=== PATIENT | female | born 1940 | race Caucasian/White ===

== ENCOUNTER 2017-06-14 12:25 | Observation (INO) ==
[2017-06-14 13:03] LABS: Bilirubin,Urine Negative (Negative); Blood,Urine Trace (Negative); Clarity,Urine Clear (Clear); Color,Urine Yellow (Yellow); Glucose,Urine (UA) 250 mg/dL (Normal); Ketones,Urine Trace mg/dL (Negative); Leukocyte Esterase,Urine Negative (Negative); Nitrite,Urine Negative (Negative); Protein,Urine 100 mg/dL (Neg-Trace); Specific Gravity,Urine 1.015 (1.010-1.025); Urobilinogen,Urine Normal (Normal)
[2017-06-14 13:05] LABS: Bacteria,Urine None Seen per hpf (None-Few); Hyaline Casts,Urine None Seen per lpf (None-Few); RBC,Urine 0-3 per hpf (0-3); Squamous Epithelial Cell,Urine Many per lpf (None-Few); WBC,Urine 0-3 per hpf (0-3)
--- NOTE | 2017-06-14 13:27 | Emergency Department Note ---
Disposition Clinical Impression: Generalized weakness, Inability to ambulate due to right hip Contusion of right hip Qualifiers: Encounter type: initial encounter Qualified Code(s): S70.01XA - Contusion of right hip, initial encounter Disposition: Admitted As Inpatient Condition: Fair Referrals: Kevin Haines MD [Primary Care Provider] - Forms: ED Satisfaction Letter Time of Disposition: 16:52 General Adult HPI - General Chief complaint: ED Weakness Stated complaint: diaphoretic/incoherent/fall Time Seen by Provider: 06/14/17 12:38 Source: patient, family (son), EMS Mode of arrival: EMS Limitations: altered mental status Nursing Notes Reviewed: Yes Vital Signs Reviewed: Yes - History of Present Illness HPI Narrative: 77-year-old female history of bipolar, Parkinson, [id number] diabetes mellitus, CAD s/p CABG presents to the ED via EMS for diaphoresis and weakness. She is a poor historian. Her son is at bedside to assist with history. States that patient called the son but did not say anything. Patient lives in a independent living for the last 3 years. The sun arrived to her apartment with her on her knees diaphoretic at her bedside. Patient denies folly but cannot recall the entire event. She states she attempted to get up and then felt tired and weak in the legs and decided to sit down. She currently denies any chest pain, shortness of breath, recent illness, nausea, vomiting, abdominal pain, extremity pain or neck pain. Reevaluation mission this alert and oriented to person and place. No obvious facial deformity. She has a bruise to the right hip. She has some urinary incontinence. Her initial blood sugar reportedly 290. Recent right arm injury and fracture with repair and pins by Dr. Wilkes. Son is concerned that she may not have been taking care of herself over the past several weeks. She typically requires a friend or family member to come over to sister on eating and drinking. She has a abnormal sleep schedule. Will get a CT of the head and neck, chest x-ray, EKG, basic labs, troponin, serum ketone. Also get urinalysis preferably a straight catheterization due to her weakness. X-ray of the right hip ordered as well. Patient appears in no acute distress. 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 Pain Scale: 0 - Related Data Home Medications Medication Instructions Recorded Confirmed Aspirin Enteric Coated [Aspirin EC] 81 mg PO QAM 07/20/15 06/14/17 Carbidopa/Levodopa 25/100 [Sinemet] 1 each PO TID 07/20/15 06/14/17 Carbidopa/Levodopa ER 50/200 1 each PO HS 07/20/15 06/14/17 [Sinemet ER 50-200 Tab] Carvedilol [Coreg] 12.5 mg PO BID 07/20/15 06/14/17 Ezetimibe [Zetia] 10 mg PO DAILY 07/20/15 06/14/17 Lisinopril [Zestril] 20 mg PO DAILY 07/20/15 06/14/17 Omeprazole [PriLOSEC] 40 mg PO BID 07/20/15 06/14/17 Pramipexole [Mirapex] 0.5 mg PO BID 07/20/15 06/14/17 Amlodipine Besylate 2.5 mg PO DAILY 04/12/17 06/14/17 Atorvastatin [Lipitor] 40 mg PO HS 04/12/17 06/14/17 Duloxetine HCl [Cymbalta] 60 mg PO DAILY 04/12/17 06/14/17 Gabapentin [Neurontin] 300 mg PO HS 04/12/17 06/14/17 GlipiZIDE XL (24 HR) [Glucotrol XL] 2.5 mg PO 0800 04/12/17 06/14/17 Metformin HCl [Glucophage] 1,000 mg PO BID 04/12/17 06/14/17 Mirabegron [Myrbetriq] 50 mg PO DAILY 04/12/17 06/14/17 Oxybutynin Chloride [Ditropan Xl] 5 mg PO HS 04/12/17 06/14/17 Rivaroxaban [Xarelto] 20 mg PO HS 04/12/17 06/14/17 Sertraline [Zoloft] 25 mg PO DAILY 04/12/17 06/14/17 SitaGLIPtin [Januvia] 100 mg PO DAILY 04/12/17 06/14/17 Allergies Allergy/AdvReac Type Severity Reaction Status Date / Time Gatifloxacin [From Tequin] Allergy Hives Verified 06/14/17 12:29 Review of Systems: As Per HPI Limitations: ROS unobtainable due to patients medical condition Past Medical History - Past Medical History Attestation: Yes The following information was validated with the patient. Source: obtained from family, nursing notes reviewed Medical history: Reports: diabetes, hyperlipidemia, hypertension, myocardial infarction Surgical history: Reports: orthopedic, other Psychiatric history: Reports: anxiety, bipolar - Social History Smoking Status: Never smoker Smokeless Tobacco Status: No Alcohol use: Reports: none Drug use: Reports: none Physical Exam - General Limitations: altered mental status General appearance: alert, in no apparent distress - Head Head exam: atraumatic, normocephalic - Eye Eye exam: Present: normal appearance - ENT ENT exam: normal exam - Neck Neck exam: Present: normal inspection, full ROM. Absent: tenderness - Chest Chest inspection: Present: normal inspection, other (midline scar consistent with CABG). Absent: symmetric chest wall rise, tenderness - Respiratory Respiratory exam: Present: normal lung sounds bilaterally. Absent: respiratory distress, wheezes - Cardiovascular Cardiovascular exam: Present: regular rate, normal rhythm, normal heart sounds - Abdominal Exam Abdominal exam: Present: soft (OBESE), Non-Tender, normal bowel sounds. Absent : tenderness, distention, guarding, rebound, rigidity - Extremities Exam Extremities exam: Present: other (right arm held in adduction and elbow flexed as if in sling, ecchymosis to right lateral hip) - Expanded Lower Extremity Exam Hip/Pelvis exam: Present: ecchymosis, pelvis stable. Absent: deformity, external rotation, internal rotation, shortening Upper leg exam: Present: normal inspection, full ROM Knee exam: Present: normal inspection, full ROM Lower leg exam: Present: normal inspection, full ROM Ankle exam: Present: normal inspection, full ROM Foot/toe exam: Present: normal inspection, full ROM Neurovascular/Tendon exam: Present: normal capillary refill - Neurological Exam Neurological exam: Present: alert - Expanded Neurological Exam Patient oriented to: Present: person, place Motor strength - LUE: 4/5 Motor strength - RUE: 4/5 Motor strength - LLE: 4/5 Motor strength - RLE: 4/5 Course - Reevaluation(s) Reevaluation #1: 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 She is established with [facility]. Was able to increase assistance for 8 hours a day. Review for labs she has a small anionic gap with a mild elevation of searing ketones. Urinalysis does not appear consistent with infection. CT of the head does not show intracranial abnormality. EKG does not show any acute ischemic changes. Labs are otherwise unremarkable. X-ray of her right hip shows no obvious fracture or abnormality. Attempted to ambulate the patient was unable to stand upon her own weight. She required significant assistance just withstanding. Some states she is normally able to ambulate with a walker. Due to her recent right arm injury and surgery she has not been moved around as well. She was scheduled with outpatient physical therapy but she cannot drive has not been attending. She will likely need admission due to her weakness and inability to ambulate. Time: 16:23 Reevaluation #2: MRI ordered of the right hip to evaluate for occult fracture of the right hip. There are in agreement with plan for admission and possible rehab placement. Time: 17:00 - Consultations Consultation #1: Spoke with on-call hospitalist may Agarwal to admit for generalized weakness and inability to walk due to suspected right hip injury/ecchymosis. No further orders at this time Time: 16:36 Vital Signs Temperature 97.7 F 06/14/17 12:37 Pulse Rate 99 06/14/17 12:37 Respiratory Rate 18 06/14/17 12:37 Blood Pressure 142/82 06/14/17 12:37 O2 Sat by Pulse Oximetry 95 06/14/17 12:37 Temperature 97.7 F 06/14/17 12:37 Pulse Rate 94 06/14/17 14:37 Respiratory Rate 16 06/14/17 14:37 Blood Pressure 142/82 06/14/17 14:37 O2 Sat by Pulse Oximetry 99 06/14/17 14:37 Oxygen Delivery Oxygen Delivery Room Air Medical Decision Making - Medical Records Medical records reviewed: Yes I reviewed the patient's medical records. - Lab Data Lab results reviewed: Yes I reviewed the patient's lab results. Result diagrams: 06/14/17 13:07 06/14/17 13:07 Lab Results 06/14/17 06/14/17 06/14/17 Range/Units 12:32 12:54 13:07 WBC 8.0 (4.3-11.1) K/mcL RBC 4.77 (3.82-4.97) M/mcL Hgb 11.2 L (11.5-15.4) g/dL Hct 37.4 (35.3-44.9) % MCV 78.4 L (83.0-100.0) fL MCH 23.5 L (28.0-33.3) pg MCHC 29.9 L (31.6-35.5) g/dL RDW 16.1 H (11.5-14.5) % Plt Count 205 (140-400) K/mcL MPV 11.6 (9.4-12.4) fL Immature Gran % 0.3 (0-4) % Seg Neutrophils % 86.0 % Lymphocytes % 8.8 % Monocytes % 4.0 % Eosinophils % 0.4 % Basophils % 0.5 % Neutrophils # 6.9 (1.6-8.9) K/mcL Lymphocytes # 0.7 (0.6-4.6) K/mcL Monocytes # 0.3 (0.0-1.3) K/mcL Eosinophils # 0.0 (0.0-0.6) K/mcL Basophils # 0.0 (0.0-0.2) K/mcL Sodium (136-145) mEq/L Potassium (3.5-4.5) mEq/L Chloride (98-109) mEq/L Carbon Dioxide (19-29) mEq/L BUN (7-20) mg/dL Creatinine (0.57-1.11) mg/dL Est GFR ( Amer) (> 60) Est GFR (Non-Af Amer) (> 60) BUN/Creatinine Ratio (6-26) Glucose (70-99) mg/dL POC Glucose 296 H (58-89) Calculated Osmolality (280-300) Calcium (8.6-10.8) mg/dL Total Bilirubin (0.2-1.2) mg/dL AST (5-34) Units/L ALT (0-55) Units/L Alkaline Phosphatase (38-126) Units/L Troponin I (0-0.03) ng/mL Serum Total Protein (6.0-8.3) g/dL Albumin (3.5-5.0) g/dL Globulin (2.4-3.5) g/dL Albumin/Globulin Ratio (1.1-2.2) Beta-Hydroxybutyric Acd (0.02-0.27) mmol/L Urine Color Yellow (Yellow) Urine Clarity Clear (Clear) Urine pH 7.0 (5.0-8.0) pH Units Ur Specific [place] 1.015 (1.010-1.025) Urine Protein 100 H (Neg-Trace) mg/dL Urine Glucose (UA) 250 H (Normal) mg/dL Urine Ketones Trace H (Negative) mg/dL Urine Blood Trace H (Negative) Urine Nitrite Negative (Negative) Urine Bilirubin Negative (Negative) Urine Urobilinogen Normal (Normal) mg/dL Ur Leukocyte Esterase Negative (Negative) Urine Microscopic RBC 0-3 (0-3) per hpf Urine Microscopic WBC 0-3 (0-3) per hpf Ur Squamous Epith Cells Many H (None-Few) per lpf Urine Bacteria None Seen (None-Few) per hpf Hyaline Casts None Seen (None-Few) per lpf Ur Culture Indicated? NO (NO) 06/14/17 06/14/17 06/14/17 Range/Units 13:07 13:07 13:07 WBC (4.3-11.1) K/mcL RBC (3.82-4.97) M/mcL Hgb (11.5-15.4) g/dL Hct (35.3-44.9) % MCV (83.0-100.0) fL MCH (28.0-33.3) pg MCHC (31.6-35.5) g/dL RDW (11.5-14.5) % Plt Count (140-400) K/mcL MPV (9.4-12.4) fL Immature Gran % (0-4) % Seg Neutrophils % % Lymphocytes % % Monocytes % % Eosinophils % % Basophils % % Neutrophils # (1.6-8.9) K/mcL Lymphocytes # (0.6-4.6) K/mcL Monocytes # (0.0-1.3) K/mcL Eosinophils # (0.0-0.6) K/mcL Basophils # (0.0-0.2) K/mcL Sodium 141 (136-145) mEq/L Potassium 3.5 (3.5-4.5) mEq/L Chloride 107 (98-109) mEq/L Carbon Dioxide 20 (19-29) mEq/L BUN 12 (7-20) mg/dL Creatinine 0.95 (0.57-1.11) mg/dL Est GFR ( Amer) > 60 (> 60) Est GFR (Non-Af Amer) 57 L (> 60) BUN/Creatinine Ratio 13 (6-26) Glucose 296 H (70-99) mg/dL POC Glucose (58-89) Calculated Osmolality 303 H (280-300) Calcium 9.4 (8.6-10.8) mg/dL Total Bilirubin 0.6 (0.2-1.2) mg/dL AST 11 (5-34) Units/L ALT 8 (0-55) Units/L Alkaline Phosphatase 76 (38-126) Units/L Troponin I 0.03 (0-0.03) ng/mL Serum Total Protein 6.9 (6.0-8.3) g/dL Albumin 3.7 (3.5-5.0) g/dL Globulin 3.2 (2.4-3.5) g/dL Albumin/Globulin Ratio 1.2 (1.1-2.2) Beta-Hydroxybutyric Acd 0.49 H (0.02-0.27) mmol/L Urine Color (Yellow) Urine Clarity (Clear) Urine pH (5.0-8.0) pH Units Ur Specific [place] (1.010-1.025) Urine Protein (Neg-Trace) mg/dL Urine Glucose (UA) (Normal) mg/dL Urine Ketones (Negative) mg/dL Urine Blood (Negative) Urine Nitrite (Negative) Urine Bilirubin (Negative) Urine Urobilinogen (Normal) mg/dL Ur Leukocyte Esterase (Negative) Urine Microscopic RBC (0-3) per hpf Urine Microscopic WBC (0-3) per hpf Ur Squamous Epith Cells (None-Few) per lpf Urine Bacteria (None-Few) per hpf Hyaline Casts (None-Few) per lpf Ur Culture Indicated? (NO) - Radiology Data Radiology results reviewed: Yes I reviewed the patient's radiology results. Cervical Spine CT 06/14/17 12:38 IMPRESSION: No acute abnormality of the cervical spine. D/ / Blair Dang MD / Blair Dang MD Interpreting Provider: Blair Dang MD Chest X-Ray 06/14/17 12:38 IMPRESSION: No acute process. D/ / Michel Pepe MD / Michel Pepe MD Interpreting Provider: Michel Pepe MD Head CT 06/14/17 12:38 IMPRESSION: No acute intracranial abnormality. Old, nonacute ischemic changes. D/ / Emmanuelle Villegas MD / Emmanuelle Villegas MD Interpreting Provider: Emmanuelle Villegas MD Hip X-Ray 06/14/17 13:27 IMPRESSION: 1. No acute osseous abnormality involving the right hip. D/ / Stephen Buckley MD / Stephen Buckley MD Interpreting Provider: Stephen Buckley MD - EKG Data EKG #1 EKG attestation: Yes I reviewed and interpreted this EKG. EKG results narrative: EKG performed 1244 normal sinus rhythm 96 bpm left axis deviation, poor R-R wave progression, LVH voltage criteria, intervals are within normal limits. Abnormal EKG. Consistent findings compared to old EKG 04/09/17. No acute ischemic changes.
[2017-06-14 13:36] LABS: Basophils % 0.5 %; Eosinophils % 0.4 %; Hematocrit 37.4 % (35.3-44.9); Hemoglobin 11.2 g/dL (11.5-15.4); Immature Granulocytes % 0.3 % (0-4); Lymphocytes # 0.7 K/mcL (0.6-4.6); Lymphocytes % 8.8 %; Mean Corpuscular HGB Conc 29.9 g/dL (31.6-35.5); Mean Corpuscular Hemoglobin 23.5 pg (28.0-33.3); Mean Corpuscular Volume 78.4 fL (83.0-100.0); Mean Platelet Volume 11.6 fL (9.4-12.4); Monocytes # 0.3 K/mcL (0.0-1.3); Neutrophils # 6.9 K/mcL (1.6-8.9); Platelet Count 205 K/mcL (140-400); Red Blood Count 4.77 M/mcL (3.82-4.97); Red Cell Distribution Width 16.1 % (11.5-14.5)
[2017-06-14 13:51] LABS: Alanine Aminotransferase 8 Units/L (0-55); Albumin 3.7 g/dL (3.5-5.0); Albumin/Globulin Ratio 1.2 (1.1-2.2); Alkaline Phosphatase 76 Units/L (38-126); Aspartate Amino Transferase 11 Units/L (5-34); BUN/Creatinine Ratio 13 (6-26); Bilirubin,Total 0.6 mg/dL (0.2-1.2); Blood Urea Nitrogen 12 mg/dL (7-20); Calcium 9.4 mg/dL (8.6-10.8); Carbon Dioxide 20 mEq/L (19-29); Chloride 107 mEq/L (98-109); Globulin 3.2 g/dL (2.4-3.5); Glucose 296 mg/dL (70-99); Osmolality,Calculated 303 (280-300); Potassium 3.5 mEq/L (3.5-4.5); Sodium 141 mEq/L (136-145); Total Protein 6.9 g/dL (6.0-8.3); eGFR For African Americans > 60 (> 60); eGFR For Non-African Americans 57 (> 60)
--- NOTE | 2017-06-14 16:22 | Electrocardiograph Report ---
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
--- NOTE | 2017-06-14 18:22 | Internal Med History&Physical ---
Date of Encounter: 06/14/17 Time of Encounter: 18:17 Assessment and Plan (1) Diabetes mellitus Current visit: No Status: Chronic (2) Parkinson disease Current visit: No Status: Chronic (3) Generalized weakness Current visit: Yes Status: Acute (4) Inability to ambulate due to right hip Current visit: Yes Status: Acute Internal Medicine - H&P: HPI Chief complaint: generalized weakness and fall Admitted From: Home Plans for Post Hospital Care: Transfer Inp Rehab Fac History of present illness: Ms. Bennett is a 77 year old female with history of bipolar, Parkinson, non- insulin-dependent diabetes mellitus, CAD s/p CABG presents to the ED via EMS for diaphoresis and weakness. She is a poor historian. Her son is at bedside to assist with history. Patient lives in a independent living for the last 3 years. The sun arrived to her apartment with her on her knees diaphoretic at her bedside. Patient denies falling but cannot recall the entire event. She states she attempted to get up and then felt tired and weak in the legs and decided to sit down. She currently denies any chest pain, shortness of breath, recent illness, nausea, vomiting, abdominal pain, extremity pain or neck pain. No obvious facial deformity. She has a bruise to the right hip. She has some urinary incontinence. Her initial blood sugar reportedly 290. Recent right arm injury and fracture with repair and pins by Dr. Wilkes. Son is concerned that she may not have been taking care of herself over the past several weeks. workup at ED showed CT of the head and neck which was essentially negative, no fracture of the hip. however patient appeared too weak to go home and was not able to stand up on her own. given that she had recent surgery and she is a fall risk, she will need rehab placement. Past Med Surg Social Fam HX - Past Medical History Medical history: diabetes, hyperlipidemia, hypertension, myocardial infarction Psychiatric history: anxiety, bipolar - Past Surgical History Surgical History: orthopedic, other - Social History Smoking Status: Never smoker Smokeless Tobacco Status: No Alcohol use: none Drug use: none - Family History Mother Living Status: Hx Family Cardiac Disorders: Yes Father Living Status: Hx Family Neurologic Disorders: Yes (Brain aneurysm) Internal Medicine - H&P: Meds Aspirin Enteric Coated [Aspirin EC] 81 mg PO QAM 07/20/15 [History] Carbidopa/Levodopa 25/100 [Sinemet] 1 each PO TID 07/20/15 [History] Carbidopa/Levodopa ER 50/200 [Sinemet ER 50-200 Tab] 1 each PO HS 07/20/15 [ History] Carvedilol [Coreg] 12.5 mg PO BID 07/20/15 [History] Ezetimibe [Zetia] 10 mg PO DAILY 07/20/15 [History] Lisinopril [Zestril] 20 mg PO DAILY 07/20/15 [History] Omeprazole [PriLOSEC] 40 mg PO BID 07/20/15 [History] Pramipexole [Mirapex] 0.5 mg PO BID 07/20/15 [History] Amlodipine Besylate 2.5 mg PO DAILY 04/12/17 [History] Atorvastatin [Lipitor] 40 mg PO HS 04/12/17 [History] Duloxetine HCl [Cymbalta] 60 mg PO DAILY 04/12/17 [History] Gabapentin [Neurontin] 300 mg PO HS 04/12/17 [History] GlipiZIDE XL (24 HR) [Glucotrol XL] 2.5 mg PO 0800 04/12/17 [History] Metformin HCl [Glucophage] 1,000 mg PO BID 04/12/17 [History] Mirabegron [Myrbetriq] 50 mg PO DAILY 04/12/17 [History] Oxybutynin Chloride [Ditropan Xl] 5 mg PO HS 04/12/17 [History] Rivaroxaban [Xarelto] 20 mg PO HS 04/12/17 [History] Sertraline [Zoloft] 25 mg PO DAILY 04/12/17 [History] SitaGLIPtin [Januvia] 100 mg PO DAILY 04/12/17 [History] Allergies Gatifloxacin [From Tequin] Allergy (Verified 06/14/17 12:29) Hives All Systems PM: A 10-system review of systems was performed and is negative for pertinent findings except as documented above in the HPI. - Constitutional Constitutional: as per HPI - EENT Eyes: as per HPI Ears: as per HPI Nose, mouth and throat: as per HPI - Breasts Breasts: as per HPI - Cardiovascular Cardiovascular ROS IM: as per HPI - Respiratory Respiratory: as per HPI - Gastrointestinal Gastrointestinal: as per HPI - Genitourinary Genitourinary: as per HPI Menstruation: as per HPI - Musculoskeletal Musculoskeletal ROS IM: as per HPI - Integumentary Integumentary IM: as per HPI - Constitutional Vitals: Temp Pulse Resp BP Pulse Ox 97.7 F 94 16 142/82 99 06/14/17 12:37 06/14/17 14:37 06/14/17 14:37 06/14/17 14:37 06/14/17 14:37 General appearance: Present: A&O X 3, no acute distress Exam: neck- supple chest- b/l clear, no added sounds CVS-s1 and s2, nomr/g abd-soft, non tender, bs are present ext- no edema, tender right hip, dereased ROM neuro- no focal defecits. Internal Med - H&P Results - Labs CBC & Chem 7: 06/14/17 13:07 06/14/17 13:07
[2017-06-14] MEDS ORDERED: Naloxone 0.4 MG/ML INJ IVP PRN (20:06)
[2017-06-14] MEDS ORDERED: D5% in Water 1,000 ML IVC PRN (20:09)
[2017-06-14] MEDS ORDERED: *HR* Dextrose 50 % in Water (Syg) 50 ML SYRINGE IVP PRN (20:09)
[2017-06-14] MEDS ORDERED: Dextrose Gel 15 GM PO PRN ×2 (20:09)
--- NOTE | 2017-06-14 20:27 | Internal Med History&Physical ---
<Hoda Turner M - Last Filed: 06/14/17 23:10> Date of Encounter: 06/14/17 Time of Encounter: 20:23 Assessment and Plan (1) Inability to ambulate due to right hip Current visit: Yes Status: Acute Patient denies falling at home but is reporting pain in right hip, and unable to ambulate because of it. right hip xray with no acute fracture. MRI of right hip shows evidence of soft tissue injuries, with no hip fracture identified. There is a suspected nondisplaced fracture of the inferior aspect of the sacrum. Pain control with tylenol and norco. PT/OT consults. Xray of sacrum and coccyx ordered. (2) Elevated troponin Current visit: Yes Status: Acute Second troponin came back elevated to 0.08, up from initial troponin of 0.03. Patient continues to deny chest pain or shortness of breath. Stat EKG ordered which did not demonstrate any changes from earlier or previous EKGs. History of CAD s/p CABG. Will continue to trend troponins. Continuous manager cardiac cath. Echocardiogram. (3) Type 2 diabetes mellitus Current visit: Yes Status: Acute Controlled as evidenced by A1c of 7.0% on 04/09/17. Hold metformin, januvia, and glipizide Diabetic diet check blood sugars ACHS sliding scale correction dose ACHS hypoglycemic protocol. Qualifiers: Diabetes mellitus complication status: without complication Diabetes mellitus skilled nursing insulin use: without skilled nursing use Qualified Code(s): E11.9 - Type 2 diabetes mellitus without complications (4) Generalized weakness Current visit: Yes Status: Acute Patient presents with generalized weakness and diaphoresis. EKG without changes. Troponin negative. CT of head negative for acute abnormality. continuous manager cardiac cath serial troponins PT/OT consult SWK consult. (5) Coronary artery disease Current visit: No Status: Chronic Patient with history of CAD s/p CABG. She denies any chest pain or shortness of breath. Continue home mohamud of aspirin, statin and beta nicholas. Qualifiers: Coronary Disease-Associated Artery/Lesion type: [place] artery [place] vs. transplanted heart: [place] heart Associated angina: angina presence unspecified Qualified Code(s): I25.10 - Atherosclerotic heart disease of [place] coronary artery without angina pectoris (6) DVT prophylaxis Current visit: Yes Status: Acute anti-embolic stockings Patient on Xarelto for history of DVT, additional pharmacologic prophylaxis not warranted. Internal Medicine - H&P: HPI Chief complaint: weakness Admitted From: Emergency Dept History of present illness: Ms. Bennett is a 77 year old female with coronary artery disease status post CABG , hypertension, hyperlipidemia, type 2 diabetes, parkinsons, DVT on xarelto, presents to the ED today with complaints of weakness. Patient reports she felt weak and sweaty and lowered herself to the ground, and was unable to get back up. She denies lightheadedness, loss of consciousness, or hitting her head. She does report some pain in her right hip and right arm. She had recent orthopedic surgery on her right arm for which she was supposed to be doing physical therapy, but has not. She denies any chest pain, palpitations, shortness of breath, fevers, chills, nausea, vomiting, abdominal pain. Evaluation in the ER included eKG which showed no changes from previous ekg. Head CT showed no acute intracranial abnormality. Troponin was negative at 0.03. She was hyperglycemic with glucose of 296. UA was negative for infection. Imaging was negative for any acute fracture, but patient was not able to ambulate. MRI of right hip was ordered and is pending. On exam, patient alert and oriented, in no acute distress. Heart had regular rate and rhythm, lungs clear to auscultation bilaterally. Patient had mild tremor. Her right arm was flexed and she held it closely to her abdomen, and reported pain with manipulation. She reports it has been like this since her surgery. She had no peripheral edema. No pain with passive range of motion of her legs. Past Med Surg Social Fam HX - Past Medical History Medical history: diabetes, hyperlipidemia, hypertension, myocardial infarction Psychiatric history: anxiety, bipolar - Past Surgical History Surgical History: orthopedic, other - Social History Smoking Status: Never smoker Smokeless Tobacco Status: No Alcohol use: none Drug use: none - Family History Mother Living Status: Hx Family Cardiac Disorders: Yes Father Living Status: Hx Family Neurologic Disorders: Yes (Brain aneurysm) Internal Medicine - H&P: Meds Aspirin Enteric Coated [Aspirin EC] 81 mg PO QAM 07/20/15 [History] Carbidopa/Levodopa 25/100 [Sinemet] 1 each PO TID 07/20/15 [History] Carbidopa/Levodopa ER 50/200 [Sinemet ER 50-200 Tab] 1 each PO HS 07/20/15 [ History] Carvedilol [Coreg] 12.5 mg PO BID 07/20/15 [History] Ezetimibe [Zetia] 10 mg PO DAILY 07/20/15 [History] Lisinopril [Zestril] 20 mg PO DAILY 07/20/15 [History] Omeprazole [PriLOSEC] 40 mg PO BID 07/20/15 [History] Pramipexole [Mirapex] 0.5 mg PO BID 07/20/15 [History] Amlodipine Besylate 2.5 mg PO DAILY 04/12/17 [History] Atorvastatin [Lipitor] 40 mg PO HS 04/12/17 [History] Duloxetine HCl [Cymbalta] 60 mg PO DAILY 04/12/17 [History] Gabapentin [Neurontin] 300 mg PO HS 04/12/17 [History] GlipiZIDE XL (24 HR) [Glucotrol XL] 2.5 mg PO 0800 04/12/17 [History] Metformin HCl [Glucophage] 1,000 mg PO BID 04/12/17 [History] Mirabegron [Myrbetriq] 50 mg PO DAILY 04/12/17 [History] Oxybutynin Chloride [Ditropan Xl] 5 mg PO HS 04/12/17 [History] Rivaroxaban [Xarelto] 20 mg PO HS 04/12/17 [History] Sertraline [Zoloft] 25 mg PO DAILY 04/12/17 [History] SitaGLIPtin [Januvia] 100 mg PO DAILY 04/12/17 [History] Allergies Gatifloxacin [From Tequin] Allergy (Verified 06/14/17 12:29) Hives All Systems PM: A 10-system review of systems was performed and is negative for pertinent findings except as documented above in the HPI. - Constitutional Constitutional: weakness, no chills, no fever(s), no night sweats - EENT Eyes: no change in vision, no discharge, no pain, no photophobia Ears: no ear discharge, no ear pain, no tinnitus Nose, mouth and throat: no dysphagia, no nasal discharge, no neck pain, no sore throat - Cardiovascular Cardiovascular ROS IM: diaphoresis, no chest pain, no dyspnea, no lightheadedness, no palpitations, no syncope - Respiratory Respiratory: no cough, no dyspnea, no wheezing, no excessive phlegm production - Gastrointestinal Gastrointestinal: no abdominal pain, no diarrhea, no hematemesis, no hematochezia, no melena, no nausea, no vomiting - Genitourinary Genitourinary: no change in urinary stream, no dysuria, no flank pain, no hematuria - Musculoskeletal Musculoskeletal ROS IM: no numbness, no tingling Additional comments: right hip pain, right arm pain - Integumentary Integumentary IM: no rash, no unusual bruising - Neurological Neurological ROS: no confusion, no convulsions, no focal weakness, no numbness, no tingling, no tremor(s) - Hematologic/Lymphatic Hematologic/Lymphatic: no easy bruising - Constitutional Vitals: Temp Pulse Resp BP Pulse Ox 98.6 F 93 15 145/85 95 06/14/17 19:39 06/14/17 19:39 06/14/17 19:39 06/14/17 19:39 06/14/17 19:39 General appearance: Present: A&O X 3, pleasant, no acute distress - Head Head exam: Present: atraumatic, normocephalic - Eye Eye exam: Present: PERRL, conjuntiva pink, sclera anicteric Pupils: Present: PERRL - Neck Neck exam general surgery: Present: supple, trachea midline. Absent: lymphadenopathy - Respiratory Respiratory exam: Present: CTAB. Absent: accessory muscle use, rales, rhonchi, wheezes - Cardiovascular Cardiovascular exam: Present: RRR, +S1, +S2. Absent: diastolic murmur, gallop, rubs, systolic murmur - GI/Abdominal GI/Abdominal exam: Present: normal bowel sounds, soft, no peritoneal signs. Absent: distended, tenderness - Extremities Exam Extremities exam: Present: warm, radial pulses palpable and symmetrical. Absent : calf tenderness, cyanotic, pedal edema - Neurological Exam Neurological exam: Present: CN II-XII intact, oriented X3, no focal deficits. Absent: facial droop, speech deficit Additional comments: protective of right arm, pain with passive range of motion of right wrist and elbow. - Skin Skin exam: Present: dry, intact Internal Med - H&P Results - Labs CBC & Chem 7: 06/14/17 13:07 06/14/17 13:07 Labs: All Lab Results (24 Hours) 06/14/17 06/14/17 06/14/17 Range/Units 12:32 12:54 13:07 WBC 8.0 (4.3-11.1) K/mcL RBC 4.77 (3.82-4.97) M/mcL Hgb 11.2 L (11.5-15.4) g/dL Hct 37.4 (35.3-44.9) % MCV 78.4 L (83.0-100.0) fL MCH 23.5 L (28.0-33.3) pg MCHC 29.9 L (31.6-35.5) g/dL RDW 16.1 H (11.5-14.5) % Plt Count 205 (140-400) K/mcL MPV 11.6 (9.4-12.4) fL Immature Gran % 0.3 (0-4) % Seg Neutrophils % 86.0 % Lymphocytes % 8.8 % Monocytes % 4.0 % Eosinophils % 0.4 % Basophils % 0.5 % Neutrophils # 6.9 (1.6-8.9) K/mcL Lymphocytes # 0.7 (0.6-4.6) K/mcL Monocytes # 0.3 (0.0-1.3) K/mcL Eosinophils # 0.0 (0.0-0.6) K/mcL Basophils # 0.0 (0.0-0.2) K/mcL Sodium (136-145) mEq/L Potassium (3.5-4.5) mEq/L Chloride (98-109) mEq/L Carbon Dioxide (19-29) mEq/L BUN (7-20) mg/dL Creatinine (0.57-1.11) mg/dL Est GFR ( Amer) (> 60) Est GFR (Non-Af Amer) (> 60) BUN/Creatinine Ratio (6-26) Glucose (70-99) mg/dL POC Glucose 296 H (58-89) Calculated Osmolality (280-300) Calcium (8.6-10.8) mg/dL Total Bilirubin (0.2-1.2) mg/dL AST (5-34) Units/L ALT (0-55) Units/L Alkaline Phosphatase (38-126) Units/L Troponin I (0-0.03) ng/mL Serum Total Protein (6.0-8.3) g/dL Albumin (3.5-5.0) g/dL Globulin (2.4-3.5) g/dL Albumin/Globulin Ratio (1.1-2.2) Beta-Hydroxybutyric Acd (0.02-0.27) mmol/L Urine Color Yellow (Yellow) Urine Clarity Clear (Clear) Urine pH 7.0 (5.0-8.0) pH Units Ur Specific [place] 1.015 (1.010-1.025) Urine Protein 100 H (Neg-Trace) mg/dL Urine Glucose (UA) 250 H (Normal) mg/dL Urine Ketones Trace H (Negative) mg/dL Urine Blood Trace H (Negative) Urine Nitrite Negative (Negative) Urine Bilirubin Negative (Negative) Urine Urobilinogen Normal (Normal) mg/dL Ur Leukocyte Esterase Negative (Negative) Urine Microscopic RBC 0-3 (0-3) per hpf Urine Microscopic WBC 0-3 (0-3) per hpf Ur Squamous Epith Cells Many H (None-Few) per lpf Urine Bacteria None Seen (None-Few) per hpf Hyaline Casts None Seen (None-Few) per lpf Ur Culture Indicated? NO (NO) 06/14/17 06/14/17 06/14/17 Range/Units 13:07 13:07 13:07 WBC (4.3-11.1) K/mcL RBC (3.82-4.97) M/mcL Hgb (11.5-15.4) g/dL Hct (35.3-44.9) % MCV (83.0-100.0) fL MCH (28.0-33.3) pg MCHC (31.6-35.5) g/dL RDW (11.5-14.5) % Plt Count (140-400) K/mcL MPV (9.4-12.4) fL Immature Gran % (0-4) % Seg Neutrophils % % Lymphocytes % % Monocytes % % Eosinophils % % Basophils % % Neutrophils # (1.6-8.9) K/mcL Lymphocytes # (0.6-4.6) K/mcL Monocytes # (0.0-1.3) K/mcL Eosinophils # (0.0-0.6) K/mcL Basophils # (0.0-0.2) K/mcL Sodium 141 (136-145) mEq/L Potassium 3.5 (3.5-4.5) mEq/L Chloride 107 (98-109) mEq/L Carbon Dioxide 20 (19-29) mEq/L BUN 12 (7-20) mg/dL Creatinine 0.95 (0.57-1.11) mg/dL Est GFR ( Amer) > 60 (> 60) Est GFR (Non-Af Amer) 57 L (> 60) BUN/Creatinine Ratio 13 (6-26) Glucose 296 H (70-99) mg/dL POC Glucose (58-89) Calculated Osmolality 303 H (280-300) Calcium 9.4 (8.6-10.8) mg/dL Total Bilirubin 0.6 (0.2-1.2) mg/dL AST 11 (5-34) Units/L ALT 8 (0-55) Units/L Alkaline Phosphatase 76 (38-126) Units/L Troponin I 0.03 (0-0.03) ng/mL Serum Total Protein 6.9 (6.0-8.3) g/dL Albumin 3.7 (3.5-5.0) g/dL Globulin 3.2 (2.4-3.5) g/dL Albumin/Globulin Ratio 1.2 (1.1-2.2) Beta-Hydroxybutyric Acd 0.49 H (0.02-0.27) mmol/L Urine Color (Yellow) Urine Clarity (Clear) Urine pH (5.0-8.0) pH Units Ur Specific [place] (1.010-1.025) Urine Protein (Neg-Trace) mg/dL Urine Glucose (UA) (Normal) mg/dL Urine Ketones (Negative) mg/dL Urine Blood (Negative) Urine Nitrite (Negative) Urine Bilirubin (Negative) Urine Urobilinogen (Normal) mg/dL Ur Leukocyte Esterase (Negative) Urine Microscopic RBC (0-3) per hpf Urine Microscopic WBC (0-3) per hpf Ur Squamous Epith Cells (None-Few) per lpf Urine Bacteria (None-Few) per hpf Hyaline Casts (None-Few) per lpf Ur Culture Indicated? (NO) - Diagnostic Studies CT scan - head Additional comments: Head CT 06/14/17 12:38 IMPRESSION: No acute intracranial abnormality. Old, nonacute ischemic changes. D/ / Emmanuelle Villegas MD / Emmanuelle Villegas MD Interpreting Provider: Emmanuelle Villegas MD Chest x-ray Additional comments: Chest X-Ray 06/14/17 12:38 IMPRESSION: No acute process. D/ / Michel Pepe MD / Michel Pepe MD Interpreting Provider: Michel Pepe MD Other Images Additional comments: Cervical Spine CT 06/14/17 12:38 IMPRESSION: No acute abnormality of the cervical spine. D/ / Blair Dang MD / Blair Dang MD Interpreting Provider: Blair Dang MD Hip X-Ray 06/14/17 13:27 IMPRESSION: 1. No acute osseous abnormality involving the right hip. D/ / Stephen Buckley MD / Stephen Buckley MD Interpreting Provider: Stephen Buckley MD Hip MRI 06/14/17 16:16 IMPRESSION: Evidence of soft tissue injuries, including low-grade tearing and strain of the obturator externus muscle, greatest at the myotendinous junction. In addition, there is evidence of superficial low grade tearing along the tensor fascia kerri and perhaps the gluteus janes aponeurosis. Moderate grade tearing involving the anterior aspect of the gluteus minimus tendon at the greater trochanter, superimposed on a background of tendinosis, with associated sub-gluteus minimus bursal fluid. Low grade intrasubstance tearing of the gluteus medius tendon, again superimposed on a background tendinosis. Although not well evaluated, there is a suspected nondisplaced fracture involving the inferior aspect of the sacrum, mainly on the right. Dedicated sacral imaging could be performed to better visualize that. No hip fracture is identified. Low-grade intrasubstance tearing of the hamstring tendon complex, superimposed on a background of tendinosis, which is probably chronic. Degenerative labral tearing. D/ / 06/14/2017 20:16:18 Parveen Stark MD / osmany Interpreting Provider: Parveen Stark MD <ShirinAndriy - Last Filed: 06/14/17 23:54> Date of Encounter: 06/14/17 Internal Medicine - H&P: HPI History of present illness: Ms. Bennett is a 77 year old female All Systems PM: A 10-system review of systems was performed and is negative for pertinent findings except as documented above in the HPI. - Constitutional Vitals: Temp Pulse Resp BP Pulse Ox 98.6 F 93 15 145/85 95 06/14/17 19:39 06/14/17 19:39 06/14/17 19:39 06/14/17 19:39 06/14/17 19:39 Internal Med - H&P Results - Labs CBC & Chem 7: 06/14/17 13:07 06/14/17 13:07 Labs: Cardiac Enzymes 06/14/17 Range/Units 21:25 Troponin I 0.08 H* (0-0.03) ng/mL - Attending Attestation I independently obtained history and examined this patient and my medical decision-making was reviewed with the nurse practitioner, Hoda Turner. I agree with the documented findings, disposition and treatment plan as described. My findings are summarized below: Patient presented with generalized weakness and musculoskeletal aching and pain. Workup revealed muscle tear and possible sacral fracture PE: NAD, RRR S1S2, CTABL Plan: We will place in observation, PT OT evaluation, sacral imaging to rule out fracture.
[2017-06-14] MEDS ORDERED: 0.9 % Sodium Chloride 1,000 ML IVC SCH (20:30)
[2017-06-14] MEDS ORDERED: Carbidopa/Levodopa 25/100 TABLET PO SCH (21:00)
[2017-06-14] MEDS ORDERED: Insulin LISPRO 300 UNITS/3 ML VIAL SQ SCH (21:00)
[2017-06-14] MEDS: 0.9 % Sodium Chloride 1,000 ML IVC SCH (22:08)
[2017-06-14] MEDS: *HR* Rivaroxaban 10 MG TABLET PO SCH (22:09)
[2017-06-14] MEDS: Gabapentin 300 MG CAPSULE PO SCH (22:10)
[2017-06-14] MEDS: Carbidopa/Levodopa ER 50/200 TABLET PO SCH (22:11)
[2017-06-14] MEDS ORDERED: Nystatin OINT 15 GM TUBE TP SCH (23:00)
[2017-06-15] MEDS: Nystatin POWDER 30 GM BOTTLE TP SCH ×3 (03:54→20:13)
[2017-06-15 07:23] LABS: BUN/Creatinine Ratio 16 (6-26); Blood Urea Nitrogen 11 mg/dL (7-20); Calcium 8.6 mg/dL (8.6-10.8); Carbon Dioxide 25 mEq/L (19-29); Chloride 110 mEq/L (98-109); Glucose 159 mg/dL (70-99); Osmolality,Calculated 299 (280-300); Sodium 143 mEq/L (136-145); eGFR For African Americans > 60 (> 60); eGFR For Non-African Americans > 60 (> 60)
[2017-06-15] MEDS: Aspirin Enteric Coated 81 MG Tablet PO SCH (07:41)
[2017-06-15] MEDS: Carbidopa/Levodopa 25/100 TABLET PO SCH ×3 (07:41→16:34)
[2017-06-15] MEDS: amLODIPine 5 MG TABLET PO SCH (07:41)
[2017-06-15] MEDS: Lisinopril 20 MG TABLET PO SCH (07:46)
[2017-06-15] MEDS: ZETIA 10MG PO SCH (07:47)
[2017-06-15] MEDS: 0.9 % Sodium Chloride 1,000 ML IVC SCH (07:56)
[2017-06-15] MEDS: Insulin LISPRO 300 UNITS/3 ML VIAL SQ SCH ×4 (07:56→20:19)
[2017-06-15 08:06] LABS: Basophils # 0.1 K/mcL (0.0-0.2); Basophils % 0.8 %; Eosinophils # 0.1 K/mcL (0.0-0.6); Eosinophils % 1.5 %; Hematocrit 31.6 % (35.3-44.9); Immature Granulocytes % 0.2 % (0-4); Lymphocytes # 1.3 K/mcL (0.6-4.6); Lymphocytes % 22.2 %; Mean Corpuscular HGB Conc 30.4 g/dL (31.6-35.5); Mean Corpuscular Hemoglobin 23.8 pg (28.0-33.3); Mean Corpuscular Volume 78.4 fL (83.0-100.0); Mean Platelet Volume 11.8 fL (9.4-12.4); Monocytes # 0.3 K/mcL (0.0-1.3); Monocytes % 5.8 %; Neutrophils # 4.1 K/mcL (1.6-8.9); Platelet Count 198 K/mcL (140-400); Red Blood Count 4.03 M/mcL (3.82-4.97); Red Cell Distribution Width 16.3 % (11.5-14.5); Segmented Neutrophils % 69.5 %
[2017-06-15 08:10] LABS: Hemoglobin 9.6 g/dL (11.5-15.4)
--- NOTE | 2017-06-15 12:17 | Internal Med Progress Note ---
Date of Encounter: 06/15/17 Time of Encounter: 08:10 - Assessment and plan (1) Inability to ambulate due to right hip Current Visit: Yes Status: Acute Assessment and plan: Evaluated by physical therapy and recommended placement to skilled rehabilitation. X-ray of the sacrum and coccyx do not reveal any fracture. Continue supportive care and pain control. social worker palliative care consult for discharge planning. (2) Coronary artery disease Current Visit: No Status: Chronic Assessment and plan: Continue aspirin and beta nicholas and statin. Qualifiers: Coronary Disease-Associated Artery/Lesion type: [place] artery [place] vs. transplanted heart: [place] heart Associated angina: angina presence unspecified Qualified Code(s): I25.10 - Atherosclerotic heart disease of [place] coronary artery without angina pectoris (3) Elevated troponin Current Visit: Yes Status: Acute Assessment and plan: Due to troponin leak/demand ischemia. No chest pain. Trending down. Peak at 0.08. (4) Generalized weakness Current Visit: Yes Status: Acute Assessment and plan: Continue physical therapy as tolerated. (5) Type 2 diabetes mellitus Current Visit: Yes Status: Acute Assessment and plan: Continue to monitor blood sugars. On sliding scale insulin. Will add long- acting insulin. Diabetic diet. Qualifiers: Diabetes mellitus complication status: without complication Diabetes mellitus long term acute care registered nurse insulin use: without nursing home use Qualified Code(s): E11.9 - Type 2 diabetes mellitus without complications (6) DVT prophylaxis Current Visit: Yes Status: Acute Assessment and plan: On Xarelto - Subjective Interval history: Patient is feeling better today. Denies any dizziness or lightheadedness. No nausea or vomiting. Tolerating diet well. Pain control as long as she is lying in bed. - Constitutional Vitals: Temp Pulse Resp BP Pulse Ox 97.8 F 78 15 122/74 95 06/15/17 07:40 06/15/17 07:40 06/15/17 07:40 06/15/17 09:19 06/15/17 07:40 General appearance: Present: A&O X 3, pleasant, no acute distress, answers questions appropriately - Respiratory Respiratory exam: Present: CTAB. Absent: accessory muscle use, rales, rhonchi, wheezes - Cardiovascular Cardiovascular exam: Present: RRR, +S1, +S2. Absent: diastolic murmur, gallop, rubs, systolic murmur - GI/Abdominal GI/Abdominal exam: Present: normal bowel sounds, soft, no peritoneal signs. Absent: distended, tenderness - Extremities Exam Extremities exam: Present: warm, radial pulses palpable and symmetrical. Absent : calf tenderness, cyanotic, pedal edema - Neurological Exam Neurological exam: Present: alert, oriented X3, no focal deficits. Absent: facial droop, speech deficit Internal Medicine: Result - Labs CBC & Chem 7: 06/15/17 06:33 06/15/17 06:33 Labs: Short CBC 06/15/17 Range/Units 06:33 WBC 5.9 (4.3-11.1) K/mcL Hgb 9.6 L D (11.5-15.4) g/dL Hct 31.6 L (35.3-44.9) % Plt Count 198 (140-400) K/mcL Neutrophils # 4.1 (1.6-8.9) K/mcL BMP 06/15/17 06:33 Sodium 143 Potassium 3.0 L Chloride 110 H Carbon Dioxide 25 BUN 11 Creatinine 0.70 Glucose 159 H Calcium 8.6 Cardiac Enzymes 06/14/17 06/15/17 06/15/17 Range/Units 21:25 06:33 09:42 Troponin I 0.08 H* 0.08 H* 0.05 H* (0-0.03) ng/mL - Impressions Impressions Sacrum and Coccyx X-Ray 06/15/17 08:00 IMPRESSION: No evidence of acute displaced sacrococcygeal fracture. D/ / 06/15/2017 11:41:33 Ricardo Walsh MD / jessica Interpreting Provider: Ricardo Walsh MD Consult Discharge Plan - Plan Referrals: Kevin Haines MD [Primary Care Provider] -
[2017-06-15] MEDS: Gabapentin 300 MG CAPSULE PO SCH (20:12)
[2017-06-15] MEDS: Acetaminophen 325 MG TABLET PO PRN (20:12)
[2017-06-15] MEDS: Carbidopa/Levodopa ER 50/200 TABLET PO SCH (20:13)
[2017-06-15] MEDS: *HR* Rivaroxaban 10 MG TABLET PO SCH (20:13)
[2017-06-15] MEDS: Insulin DETEMIR 100 UNIT/ML X5UNITS SQ SCH (20:22)
[2017-06-16] MEDS: Acetaminophen 325 MG TABLET PO PRN ×3 (03:53→21:06)
[2017-06-16] MEDS: Nystatin POWDER 30 GM BOTTLE TP SCH ×2 (07:30→21:19)
[2017-06-16] MEDS: Aspirin Enteric Coated 81 MG Tablet PO SCH (07:30)
[2017-06-16] MEDS: Lisinopril 20 MG TABLET PO SCH (07:31)
[2017-06-16] MEDS: amLODIPine 5 MG TABLET PO SCH (07:31)
[2017-06-16] MEDS: Carbidopa/Levodopa 25/100 TABLET PO SCH ×3 (07:31→17:02)
[2017-06-16] MEDS: ZETIA 10MG PO SCH (07:31)
[2017-06-16] MEDS: Insulin LISPRO 300 UNITS/3 ML VIAL SQ SCH ×4 (07:48→21:07)
[2017-06-16] MEDS: Insulin DETEMIR 100 UNIT/ML X5UNITS SQ SCH ×2 (07:48→21:08)
[2017-06-16 08:19] LABS: Basophils % 0.5 %; Eosinophils # 0.2 K/mcL (0.0-0.6); Eosinophils % 3.9 %; Hematocrit 31.2 % (35.3-44.9); Hemoglobin 9.5 g/dL (11.5-15.4); Immature Granulocytes % 0.4 % (0-4); Immature Platelets 3.9 % (1.1-6.1); Lymphocytes # 1.4 K/mcL (0.6-4.6); Lymphocytes % 23.9 %; Mean Corpuscular HGB Conc 30.4 g/dL (31.6-35.5); Mean Corpuscular Hemoglobin 24.1 pg (28.0-33.3); Mean Corpuscular Volume 79.2 fL (83.0-100.0); Mean Platelet Volume 10.4 fL (9.4-12.4); Monocytes # 0.3 K/mcL (0.0-1.3); Monocytes % 5.5 %; Neutrophils # 3.7 K/mcL (1.6-8.9); Platelet Count 176 K/mcL (140-400); Red Blood Count 3.94 M/mcL (3.82-4.97); Red Cell Distribution Width 16.4 % (11.5-14.5); Segmented Neutrophils % 65.8 %
--- NOTE | 2017-06-16 11:53 | Internal Med Progress Note ---
Date of Encounter: 06/16/17 Time of Encounter: 08:25 - Assessment and plan (1) Inability to ambulate due to right hip Current Visit: Yes Status: Acute Assessment and plan: Improving. Continue physical therapy. Patient has been evaluated by physical therapy and recommended placement to skilled rehabilitation. general farmworker has been notified about this. We will await recommendations. Discharge planning. Continue PT. (2) Coronary artery disease Current Visit: No Status: Chronic Assessment and plan: Continue aspirin, statin and beta nicholas. No chest pain reported. Qualifiers: Coronary Disease-Associated Artery/Lesion type: [place] artery [place] vs. transplanted heart: [place] heart Associated angina: angina presence unspecified Qualified Code(s): I25.10 - Atherosclerotic heart disease of [place] coronary artery without angina pectoris (3) Elevated troponin Current Visit: Yes Status: Acute Assessment and plan: Trending down. Likely from demand ischemia and chronic coronary artery disease. No chest pain (4) Generalized weakness Current Visit: Yes Status: Acute Assessment and plan: With some orthostatic symptoms. Continue physical therapy. Placement to skilled rehabilitation for physical therapy recommendations. Patient lives at home alone and would be unsafe to live by herself at this time. (5) Type 2 diabetes mellitus Current Visit: Yes Status: Acute Assessment and plan: Improved control. Will continue current insulin regimen and diabetic diet Qualifiers: Diabetes mellitus complication status: without complication Diabetes mellitus care home insulin use: without care home use Qualified Code(s): E11.9 - Type 2 diabetes mellitus without complications (6) DVT prophylaxis Current Visit: Yes Status: Acute - Subjective Interval history: Patient is sitting up in chair. Denies any new complaints at this time. Has been having slight dizziness when she stands up but that soon subsides. Denies any symptoms of vertigo. - Constitutional Vitals: Temp Pulse Resp BP Pulse Ox 97.8 F 64 16 116/78 95 06/16/17 10:08 06/16/17 10:08 06/16/17 10:08 06/16/17 10:08 06/16/17 10:08 General appearance: Present: A&O X 3, pleasant, no acute distress, answers questions appropriately - Respiratory Respiratory exam: Present: CTAB. Absent: accessory muscle use, rales, rhonchi, wheezes - Cardiovascular Cardiovascular exam: Present: RRR, +S1, +S2. Absent: diastolic murmur, gallop, rubs, systolic murmur - GI/Abdominal GI/Abdominal exam: Present: normal bowel sounds, soft, no peritoneal signs. Absent: distended, tenderness - Neurological Exam Neurological exam: Present: alert, oriented X3, no focal deficits, strengths equal and symetr throughout. Absent: facial droop, speech deficit - Skin Skin exam: Present: dry, intact Internal Medicine: Result - Labs CBC & Chem 7: 06/16/17 08:05 06/16/17 08:05 Labs: Short CBC 06/16/17 Range/Units 08:05 WBC 5.7 (4.3-11.1) K/mcL Hgb 9.5 L (11.5-15.4) g/dL Hct 31.2 L (35.3-44.9) % Plt Count 176 (140-400) K/mcL Neutrophils # 3.7 (1.6-8.9) K/mcL BMP 06/16/17 08:05 Potassium 3.6 - Impressions Impressions Sacrum and Coccyx X-Ray 06/15/17 08:00 IMPRESSION: No evidence of acute displaced sacrococcygeal fracture. D/ / 06/15/2017 11:41:33 Ricardo Walsh MD / jessica Interpreting Provider: Ricardo Walsh MD Consult Discharge Plan - Plan Referrals: Kevin Haines MD [Primary Care Provider] -
--- NOTE | 2017-06-16 12:56 | Electrocardiograph Report ---
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
[2017-06-16] MEDS: *HR* Rivaroxaban 10 MG TABLET PO SCH (21:07)
[2017-06-16] MEDS: Gabapentin 300 MG CAPSULE PO SCH (21:07)
[2017-06-16] MEDS: Carbidopa/Levodopa ER 50/200 TABLET PO SCH (21:07)
[2017-06-17] MEDS: Insulin DETEMIR 100 UNIT/ML X5UNITS SQ SCH (08:34)
[2017-06-17] MEDS: ZETIA 10MG PO SCH (08:34)
[2017-06-17] MEDS: Carbidopa/Levodopa 25/100 TABLET PO SCH ×2 (08:35→12:48)
[2017-06-17] MEDS: Aspirin Enteric Coated 81 MG Tablet PO SCH (08:35)
[2017-06-17] MEDS: Lisinopril 20 MG TABLET PO SCH (08:35)
[2017-06-17] MEDS: amLODIPine 5 MG TABLET PO SCH (08:36)
[2017-06-17] MEDS: Insulin LISPRO 300 UNITS/3 ML VIAL SQ SCH ×2 (08:36→12:53)
[2017-06-17] MEDS: Acetaminophen 325 MG TABLET PO PRN (08:47)
[2017-06-17] MEDS: Nystatin POWDER 30 GM BOTTLE TP SCH (10:07)
[2017-06-17 15:13] VITALS: BP 135/59
--- NOTE | 2017-06-17 15:52 | Discharge Summary ---
Date of Encounter: 06/17/17 Time of Encounter: 08:15 - Discharge Diagnosis (1) Inability to ambulate due to right hip Priority: Primary Status: Acute (2) Coronary artery disease Priority: Secondary Status: Chronic Qualifiers: Coronary Disease-Associated Artery/Lesion type: [place] artery [place] vs. transplanted heart: [place] heart Associated angina: angina presence unspecified Qualified Code(s): I25.10 - Atherosclerotic heart disease of [place] coronary artery without angina pectoris (3) Elevated troponin Priority: Secondary Status: Acute (4) Generalized weakness Priority: Secondary Status: Acute (5) Type 2 diabetes mellitus Priority: Secondary Status: Acute Qualifiers: Diabetes mellitus complication status: without complication Diabetes mellitus intermediate manager insulin use: without residential use Qualified Code(s): E11.9 - Type 2 diabetes mellitus without complications (6) DVT prophylaxis Priority: Secondary Status: Acute - Discharge Medications Home Medications: Aspirin Enteric Coated [Aspirin EC] 81 mg PO QAM 07/20/15 [History] Carbidopa/Levodopa 25/100 [Sinemet] 1 each PO TID 07/20/15 [History] Carbidopa/Levodopa ER 50/200 [Sinemet ER 50-200 Tab] 1 each PO HS 07/20/15 [ History] Carvedilol [Coreg] 12.5 mg PO BID 07/20/15 [History] Ezetimibe [Zetia] 10 mg PO DAILY 07/20/15 [History] Lisinopril [Zestril] 20 mg PO DAILY 07/20/15 [History] Omeprazole [PriLOSEC] 40 mg PO BID 07/20/15 [History] Pramipexole [Mirapex] 0.5 mg PO BID 07/20/15 [History] Amlodipine Besylate 2.5 mg PO DAILY 04/12/17 [History] Atorvastatin [Lipitor] 40 mg PO HS 04/12/17 [History] Duloxetine HCl [Cymbalta] 60 mg PO DAILY 04/12/17 [History] Gabapentin [Neurontin] 300 mg PO HS 04/12/17 [History] GlipiZIDE XL (24 HR) [Glucotrol XL] 2.5 mg PO 0800 04/12/17 [History] Metformin HCl [Glucophage] 1,000 mg PO BID 04/12/17 [History] Mirabegron [Myrbetriq] 50 mg PO DAILY 04/12/17 [History] Oxybutynin Chloride [Ditropan Xl] 5 mg PO HS 04/12/17 [History] Rivaroxaban [Xarelto] 20 mg PO HS 04/12/17 [History] Sertraline [Zoloft] 25 mg PO DAILY 04/12/17 [History] SitaGLIPtin [Januvia] 100 mg PO DAILY 04/12/17 [History] Allergies/Adverse Reactions: Allergies Gatifloxacin [From Tequin] Allergy (Verified 06/14/17 12:29) Hives Procedures/tests Complete & Pending: Procedures Performed prior 72 hours Category Date Time Status ECG 12 lead ECG [ECG] Routine Y 06/14/17 22:31 Completed EV echocardiogram Routine Y 06/14/17 22:47 Completed Date of admission: 06/14/17 17:17 Primary care physician: Kevin Haines Consults: 06/14/17 20:23 Consult to Occupational Therapy [CONS] Routine Comment: Evaluate, develop and implement POC Reason for Consult: weakness and unable to ambulate. recent orthopedic surgery on right arm and has not been doing her physical therapy. Consult to Physical Therapy [CONS] Routine Comment: Evaluate, develop and implement POC Reason for Consult: weakness and unable to ambulate. recent orthopedic surgery on right arm and has not been doing her physical therapy. Consult to Medical Examiner [CONS] Routine Reason for SW Consult: weakness and unable to ambulate. recent orthopedic surgery on right arm and has not been doing her physical therapy. 06/14/17 22:38 Consult to Pastoral Services [CONS] Routine Comment: 06/14/17 23:00 Consult to Wound Care [CONS] Routine Reason for Consult: skin breakdown on lower abdomen Call Completed: No Discharging clinician: Brad Cross Anticipated date of discharge: 06/17/17 - Patient Status Disposition: Transfer SNF Condition: Good Functional capacity at discharge: uses cane/walker Overall status at discharge: patient is progressing back to baseline - Discharge Instructions Instructions: Diabetes Mellitus Type 2 in Adults (DC) Follow Up With: Kevin Haines MD [Primary Care Provider] - (in 1-2 weeks) - Diet and Activity Activity: as per physical therapy, increase activity as tolerated Diet: diabetic diet, low fat, low cholesterol, low salt diet Hospital course: Ms. Bennett is a 77 year old female patient with history of type 2 diabetes mellitus, coronary artery disease was hospitalized here with generalized weakness and presyncope-like symptoms. She was worked up in the ER and was found to be hyperglycemic with a slight elevation in troponin at 0.03. She was hospitalized for further evaluation. X-ray of the hip did not show any acute fracture. She underwent MRI of the hip which showed arthritic and chronic muscle injury changes along with possible nondisplaced sacral fracture. X-ray of the sacrum and coccyx did not show any acute displaced fracture. CT scan of the head was negative for any acute stroke. Chest x-ray was also negative for any pneumonia. Patient was therefore monitored and her troponins were trended. Troponins kosta slightly to a peak of 0.08. Patient has not had any chest pain or EKG changes. Her troponin rise could be related to her chronic coronary artery disease without any ACS. A 2-D echocardiogram done here showed an EF of 50-55%. She was evaluated by physical therapy and recommended placement to skilled rehabilitation. She will be discharged from the hospital once he has a bed available for her. - Time Spent with Patient Total time spent providing and/or coordinating discharge services: Greater than 30 minutes (35 min) - Constitutional Vitals: Temp Pulse Resp BP Pulse Ox 98.3 F 60 18 135/59 95 06/17/17 15:08 06/17/17 15:08 06/17/17 15:08 06/17/17 15:08 06/17/17 15:08 General appearance: Present: A&O X 3, pleasant, no acute distress, answers questions appropriately - Neck Neck exam general surgery: Present: supple, trachea midline. Absent: lymphadenopathy - Respiratory Respiratory exam: Present: CTAB. Absent: accessory muscle use, rales, rhonchi, wheezes - Cardiovascular Cardiovascular exam: Present: RRR, +S1, +S2. Absent: diastolic murmur, gallop, rubs, systolic murmur - GI/Abdominal GI/Abdominal exam: Present: normal bowel sounds, soft, no peritoneal signs. Absent: distended, tenderness - Neurological Exam Neurological exam: Present: alert, oriented X3, no focal deficits, strengths equal and symetr throughout. Absent: facial droop, speech deficit
--- NOTE | 2017-06-17 15:55 | Physician Discharge Referral ---
ExtendedCare Referral Info Provider in Charge after Transfer: PCP Institutional Level of Care: Skilled - Diagnosis (1) Inability to ambulate due to right hip Priority: Primary Status: Acute (2) Coronary artery disease Priority: Secondary Status: Chronic (3) Elevated troponin Priority: Secondary Status: Acute (4) Generalized weakness Priority: Secondary Status: Acute (5) Type 2 diabetes mellitus Priority: Secondary Status: Acute (6) DVT prophylaxis Priority: Secondary Status: Acute Prognosis: Fair Aware of Diagnosis: Patient, Family Aware of Prognosis: Patient, Family - Transfer Medications Home Medications: Aspirin Enteric Coated [Aspirin EC] 81 mg PO QAM 07/20/15 [History] Carbidopa/Levodopa 25/100 [Sinemet] 1 each PO TID 07/20/15 [History] Carbidopa/Levodopa ER 50/200 [Sinemet ER 50-200 Tab] 1 each PO HS 07/20/15 [ History] Carvedilol [Coreg] 12.5 mg PO BID 07/20/15 [History] Ezetimibe [Zetia] 10 mg PO DAILY 07/20/15 [History] Lisinopril [Zestril] 20 mg PO DAILY 07/20/15 [History] Omeprazole [PriLOSEC] 40 mg PO BID 07/20/15 [History] Pramipexole [Mirapex] 0.5 mg PO BID 07/20/15 [History] Amlodipine Besylate 2.5 mg PO DAILY 04/12/17 [History] Atorvastatin [Lipitor] 40 mg PO HS 04/12/17 [History] Duloxetine HCl [Cymbalta] 60 mg PO DAILY 04/12/17 [History] Gabapentin [Neurontin] 300 mg PO HS 04/12/17 [History] GlipiZIDE XL (24 HR) [Glucotrol XL] 2.5 mg PO 0800 04/12/17 [History] Metformin HCl [Glucophage] 1,000 mg PO BID 04/12/17 [History] Mirabegron [Myrbetriq] 50 mg PO DAILY 04/12/17 [History] Oxybutynin Chloride [Ditropan Xl] 5 mg PO HS 04/12/17 [History] Rivaroxaban [Xarelto] 20 mg PO HS 04/12/17 [History] Sertraline [Zoloft] 25 mg PO DAILY 04/12/17 [History] SitaGLIPtin [Januvia] 100 mg PO DAILY 04/12/17 [History] Allergies/Adverse Reactions: Allergies Gatifloxacin [From Tequin] Allergy (Verified 06/14/17 12:29) Hives - Respiratory Orders Smoking Cessation: Smoking cessation has been advised. For more information, call the [place] Tobacco Quit Line at 3-842-PHZO-NOW. - Ancillary Orders May consult with Dentist, Dental Coordinator, Field Operations Supervisor PRN - Advance Directives Code Status: Full Code - Mobility Orders Ambulate (per PT) - Rehabiliation Orders Rehab Potential: Good Rehab Orders: Evaluation for Physical Therapy, Evaluation for Occupational Therapy - Diet Orders No Concentrated Sweets (and diabetic), Cardiac CERTIFICATION: I certify that the transfer of the above named patient to an Extended Care Facility is necessary for the continuing treatment of the diagnosis listed. The above information is true and accurate reflection of patient's current condition. Confidential - Redisclosure prohibited without a patient's written consent.
== END 2017-06-17 18:55 ==
LOC: EMEROO 12:25 → 3NENU 12:25 → 3ANU 06-17 11:07
PROVIDERS: ADMIT Internal Medicine Endocrinology, Diabetes & Metabolism; ATTEND Internal Medicine

== ENCOUNTER 2017-06-26 03:51 | Inpatient (IN) ==
[2017-06-26] MEDS ORDERED: *HR* Morphine 2 MG/ML SYRINGE IVP ONE ×2 (04:26→05:48)
[2017-06-26] MEDS ORDERED: Ondansetron 4 MG/2 ML VIAL IVP ONE ×2 (04:26→14:12)
--- NOTE | 2017-06-26 04:32 | Emergency Department Note ---
Disposition Clinical Impression: Closed intertrochanteric fracture of left femur Qualifiers: Encounter type: initial encounter Fracture alignment: displaced Qualified Code( s): S72.142A - Displaced intertrochanteric fracture of left femur, initial encounter for closed fracture Disposition: Admitted As Inpatient Condition: Fair Referrals: Angy Camejo [Primary Care Provider] - Forms: ED Satisfaction Letter Fall HPI - General Chief Complaint: ED Extremity Injury, Lower Stated Complaint: fall, left hip pain Time Seen by Provider: 06/26/17 04:00 Source: patient, family, EMS Mode of arrival: EMS Limitations: no limitations Nursing Notes Reviewed: Yes Vital Signs Reviewed: Yes - History of Present Illness Pt Subjective Complaint: fall 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 Denies: headache, neck pain, numbness, weakness, chest pain, shortness of breath, abdominal pain, hematuria, lightheaded, vertigo, confusion - Related Data Home Medications Medication Instructions Recorded Confirmed Aspirin Enteric Coated [Aspirin EC] 81 mg PO QAM 07/20/15 06/14/17 Carbidopa/Levodopa 25/100 [Sinemet] 1 each PO TID 07/20/15 06/14/17 Carbidopa/Levodopa ER 50/200 1 each PO HS 07/20/15 06/14/17 [Sinemet ER 50-200 Tab] Carvedilol [Coreg] 12.5 mg PO BID 07/20/15 06/14/17 Ezetimibe [Zetia] 10 mg PO DAILY 07/20/15 06/14/17 Lisinopril [Zestril] 20 mg PO DAILY 07/20/15 06/14/17 Omeprazole [PriLOSEC] 40 mg PO BID 07/20/15 06/14/17 Pramipexole [Mirapex] 0.5 mg PO BID 07/20/15 06/14/17 Amlodipine Besylate 2.5 mg PO DAILY 04/12/17 06/14/17 Atorvastatin [Lipitor] 40 mg PO HS 04/12/17 06/14/17 Duloxetine HCl [Cymbalta] 60 mg PO DAILY 04/12/17 06/14/17 Gabapentin [Neurontin] 300 mg PO HS 04/12/17 06/14/17 GlipiZIDE XL (24 HR) [Glucotrol XL] 2.5 mg PO 0800 04/12/17 06/14/17 Metformin HCl [Glucophage] 1,000 mg PO BID 04/12/17 06/14/17 Mirabegron [Myrbetriq] 50 mg PO DAILY 04/12/17 06/14/17 Oxybutynin Chloride [Ditropan Xl] 5 mg PO HS 04/12/17 06/14/17 Rivaroxaban [Xarelto] 20 mg PO HS 04/12/17 06/14/17 Sertraline [Zoloft] 25 mg PO DAILY 04/12/17 06/14/17 SitaGLIPtin [Januvia] 100 mg PO DAILY 04/12/17 06/14/17 Allergies Allergy/AdvReac Type Severity Reaction Status Date / Time Gatifloxacin [From Tequin] Allergy Hives Verified 06/14/17 12:29 All systems ED: reviewed and negative except as stated. Review of Systems: As Per HPI Constitutional: Denies: fever, chills, weakness Eyes: Denies: vision change Cardiovascular: Denies: chest pain, palpitations Respiratory: Denies: dyspnea Gastrointestinal: Denies: abdominal pain, nausea, vomiting Musculoskeletal: Reports: as per HPI, arthralgia. Denies: back pain, neck pain Neurological: Denies: headache, weakness, numbness, paresthesias, confusion, abnormal gait, vertigo Hematological/Lymphatic: Denies: easy bleeding, easy bruising Fall PMH - Past Medical History Medical history: Reports: diabetes, GERD, hyperlipidemia, hypertension, myocardial infarction Reports: Parkinson's Disease Surgical history: Reports: orthopedic, other Psychiatric history: Reports: anxiety, bipolar, depression - Social History Smoking Status: Never smoker Alcohol use: Reports: none Drug use: Reports: none Physical Exam - General Limitations: no limitations General appearance: alert, in distress - Head Head exam: normocephalic - Expanded Head Exam Head exam physicial: Present: contusion, hematoma. Absent: raccoon eyes, Elizabeth 's sign, CSF rhinorrhea, CSF otorrhea 1 - contusion, hematoma, mild tenderness - Eye Eye exam: Present: normal appearance, PERRL, EOMI. Absent: scleral icterus, conjunctival injection, periorbital swelling, periorbital tenderness - ENT ENT exam: normal exam, normal oropharynx, mucous membranes moist - Neck Neck exam: Present: normal inspection, full ROM, trachea midline - Expanded Neck Exam Neck exam focused ED: Present: midline tenderness. Absent: paraspinal tenderness, anterior neck swelling - Chest Chest inspection: Present: normal inspection - Respiratory Respiratory exam: Present: normal lung sounds bilaterally. Absent: respiratory distress - Cardiovascular Cardiovascular exam: Present: regular rate, normal rhythm, normal heart sounds - Abdominal Exam Abdominal exam: Present: soft, Non-Tender - Extremities Exam Extremities exam: Present: tenderness, normal capillary refill. Absent: pedal edema - Expanded Upper Extremity Exam Shoulder exam: Present: normal inspection. Absent: tenderness Arm exam: Present: normal inspection. Absent: tenderness Elbow exam: Present: normal inspection, full ROM. Absent: tenderness Forearm/Wrist exam: Present: full ROM, tenderness. Absent: crepitus, dislocation, erythema, tenderness over anatomical snuff box Hand exam: Present: full ROM, tenderness (right dosal proximal hand), swelling ( mild, right, dorsal), deformity (right dorsal). Absent: abrasion, laceration, skin avulsion, ecchymosis, crepitus, erythema Hand L/R back image: 1 - tenderness, deformity Neuromotor exam: Normal: wrist extension, thumb opposition, thumb IP flexion, thumb adduction, fingers 2-5 abduction Neurosensory exam: Normal: radial nerve, ulnar nerve, median nerve Hand tendon exam: Normal: flexor digitorum profundus (location), flexor digitorum superficialis (location), extensor tendon (location) Vascular exam: Normal: capillary refill, radial pulse, ulnar pulse - Back Exam Back exam: Present: normal inspection. Absent: tenderness - Neurological Exam Neurological exam: Present: alert, oriented X3, CN II-XII intact - Psychiatric Psychiatric exam: Present: normal affect, normal mood - Skin Skin exam: Present: warm, dry, intact, normal color Course Course Narrative: Patient presents from a [facility] for evaluation of left hip pain after a fall. She states that she was sitting at the dining table, then stood up to walk and fell. She had her head on side of the table and landed on her left hip. She has pain in the left hip and in the right hand as well as in the side of the head. She denies loss of consciousness, dizziness, vertigo, syncope, chest pain, palpitations, dyspnea, paresthesias or weakness in extremities. After the fall she was unable to get up to walk. On exam, she has internal rotation of the left hip with significant pain with slight range of motion. She also has tenderness to palpation of the right hand and has a history of a healing fracture for which she was scheduled to see Dr. Wilkes for today. Will treat her pain, scan her head, face and neck and get xrays of her hand and hip. Patient has a minimally distracted left intertrochanteric fracture. Her hand is not acutely broken. She will require admission. Hospitalist was paged and accepted. Case was discussed with Dr. Dupree. He has seen the patient and agrees with the assessment, plan Vital Signs Temperature 97.7 F 06/26/17 03:55 Pulse Rate 88 06/26/17 03:55 Respiratory Rate 18 06/26/17 03:55 Blood Pressure 158/86 06/26/17 03:55 O2 Sat by Pulse Oximetry 95 06/26/17 03:55 Temperature 97.7 F 06/26/17 03:55 Pulse Rate 88 06/26/17 03:55 Respiratory Rate 18 06/26/17 03:55 Blood Pressure 158/86 06/26/17 03:55 O2 Sat by Pulse Oximetry 95 06/26/17 03:55 Oxygen Delivery Oxygen Delivery Room Air Fall - Medical Records Medical records reviewed: Yes I reviewed the patient's medical records. - Radiology Data Radiology results reviewed: Yes I reviewed the patient's radiology results.
[2017-06-26] MEDS ORDERED: Naloxone 0.4 MG/ML INJ IVP PRN ×4 (06:01→16:01)
[2017-06-26] MEDS ORDERED: *HR* Morphine 2 MG/ML SYRINGE IVP PRN ×3 (06:01→16:01)
[2017-06-26] MEDS ORDERED: *HR* OxyCODONE Immed Rel 5 MG TABLET PO PRN (06:02)
[2017-06-26] MEDS ORDERED: Dextrose Gel 15 GM PO PRN ×4 (06:03→16:01)
[2017-06-26] MEDS ORDERED: D5% in Water 1,000 ML IVC PRN ×2 (06:03→16:01)
[2017-06-26] MEDS ORDERED: *HR* Dextrose 50 % in Water (Syg) 50 ML SYRINGE IVP PRN ×2 (06:03→16:01)
--- NOTE | 2017-06-26 06:14 | Internal Med History&Physical ---
Date of Encounter: 06/26/17 Time of Encounter: 06:10 Assessment and Plan (1) Fracture, intertrochanteric, left femur Current visit: Yes Status: Acute IVF, IV morphine, NPO pending orthopedic surgeon evaluation Qualifiers: Qualified Code(s): S72.142A - Displaced intertrochanteric fracture of left femur, initial encounter for closed fracture (2) Type 2 diabetes mellitus Current visit: No Status: Acute hold oral agents, ISS for now Qualifiers: Diabetes mellitus complication status: without complication Diabetes mellitus retirement insulin use: without retirement use Qualified Code(s): E11.9 - Type 2 diabetes mellitus without complications (3) Coronary artery disease Current visit: No Status: Chronic s/p CABG. Medical management Qualifiers: Coronary Disease-Associated Artery/Lesion type: [place] artery [place] vs. transplanted heart: [place] heart Associated angina: angina presence unspecified Qualified Code(s): I25.10 - Atherosclerotic heart disease of [place] coronary artery without angina pectoris (4) Parkinson disease Current visit: No Status: Chronic likely contributing to recurrent falls. On sinemet (5) Anticoagulant long-term use Current visit: Yes Status: Acute hx of VTE and as such, appears to be on indefinite xarelto. Hold for now, lovenox ppx while inpatient given likely surgical intervention Internal Medicine - H&P: HPI Chief complaint: Fall with left leg pain History of present illness: Ms. Bennett is a 77 year old female with hx of recurrent falls, CAD s/p CABG 2004 , HTN, DMII, parkinsonism who presents with acute fall with an acute left hip intertrochanteric fracture. Her orthopedic surgeon is Dr Wilkes. She has had a hx of recurrent mechanical falls and fracture where hand bones (MCP?) 2 months ago needing pins placement. She later re-injured it. She has seen been at a SNF for the last 2 week in an attempt to improve her physical conditioning. Tonight, she stood up and when she attempted to sit down, her chair slide further beyond her leading to the fall. She mentions that the wood floors were too slippery. After the trauma, she had severe pain along her left leg, worse with movement, better with morphine IV. XR/XR hip complete LT IMPRESSION: Acute intertrochanteric left hip fracture. XR/XR hand 3V RT IMPRESSION: No acute fracture or malalignment. CT/CT cervical spine wo con IMPRESSION: Spondylosis with no definite fracture. CT/CT head/brain wo con IMPRESSION: No acute intracranial abnormality. Moderate chronic small vessel ischemic disease within the periventricular white matter with associated mild atrophy Bilateral basal ganglionic lacunes CT/CT orbit wo con IMPRESSION: No acute abnormality of the orbits. Past Med Surg Social Fam HX - Past Medical History Medical history: diabetes, GERD, hyperlipidemia, hypertension, myocardial infarction Psychiatric history: anxiety, bipolar, depression - Past Surgical History Surgical History: orthopedic, other - Social History Smoking Status: Never smoker Smokeless Tobacco Status: No Alcohol use: none Drug use: none - Family History Mother Living Status: Hx Family Cardiac Disorders: Yes Father Living Status: Hx Family Neurologic Disorders: Yes (Brain aneurysm) Internal Medicine - H&P: Meds Aspirin Enteric Coated [Aspirin EC] 81 mg PO QAM 07/20/15 [History] Carbidopa/Levodopa 25/100 [Sinemet] 1 each PO TID 07/20/15 [History] Carbidopa/Levodopa ER 50/200 [Sinemet ER 50-200 Tab] 1 each PO HS 07/20/15 [ History] Carvedilol [Coreg] 12.5 mg PO BID 07/20/15 [History] Ezetimibe [Zetia] 10 mg PO DAILY 07/20/15 [History] Lisinopril [Zestril] 20 mg PO DAILY 07/20/15 [History] Omeprazole [PriLOSEC] 40 mg PO BID 07/20/15 [History] Pramipexole [Mirapex] 0.5 mg PO BID 07/20/15 [History] Amlodipine Besylate 2.5 mg PO DAILY 04/12/17 [History] Atorvastatin [Lipitor] 40 mg PO HS 04/12/17 [History] Duloxetine HCl [Cymbalta] 60 mg PO DAILY 04/12/17 [History] Gabapentin [Neurontin] 300 mg PO HS 04/12/17 [History] GlipiZIDE XL (24 HR) [Glucotrol XL] 2.5 mg PO 0800 04/12/17 [History] Metformin HCl [Glucophage] 1,000 mg PO BID 04/12/17 [History] Mirabegron [Myrbetriq] 50 mg PO DAILY 04/12/17 [History] Oxybutynin Chloride [Ditropan Xl] 5 mg PO HS 04/12/17 [History] Rivaroxaban [Xarelto] 20 mg PO HS 04/12/17 [History] Sertraline [Zoloft] 25 mg PO DAILY 04/12/17 [History] SitaGLIPtin [Januvia] 100 mg PO DAILY 04/12/17 [History] 3 Allergy/AdvReac Type Severity Reaction Status Date / Time Gatifloxacin [From Tequin] Allergy Hives Verified 06/14/17 12:29 All Systems PM: A 10-system review of systems was performed and is negative for pertinent findings except as documented above in the HPI. Review of systems: ROS 14 point review of systems reviewed as best as possible given presentation. Pertinent positive or negative as per HPI or otherwise reviewed as negative - Constitutional Vitals: Temp Pulse Resp BP Pulse Ox 97.7 F 82 18 162/88 98 06/26/17 03:55 06/26/17 05:46 06/26/17 05:46 06/26/17 05:46 06/26/17 05:46 Exam: General - AAO x 3 Psych - Appropriate affect/speech. No agitation Eyes - SANTOS. Eye lids intact. No scleral icterus Heart - Sinus. RRR. S1 and S2 present. No added HS/murmurs appreciated. No elevated JVD appreciated. No calf swellings/erythema Lung - Adequate air entry b/l, No crackes/wheezes appreciated GI - Soft, non-tender. No hepatosplenomegaly/ascites. BS+ - No CVA/suprapubic tenderness or palpable bladder distension Skin - Intact. No rash/petechiae/ecchymosis. Warm extremities MSK - sensation of lower extremity intact, pain on left leg worse with movement
[2017-06-26] MEDS ORDERED: Ringers Solution, Lactated 1,000 ML IVC SCH ×2 (06:15→16:01)
--- NOTE | 2017-06-26 08:14 | Orthopedic Consult Note ---
Date of Encounter: 06/26/17 Time of Encounter: 08:12 Assessment and Plan (1) Fracture, intertrochanteric, left femur Current Visit: Yes Status: Acute Plan of care discussed with patient and . Conservative and surgical interventions discussed. Because of patients inability to ambulate and pain, surgical intervention recommended. Recommending Left Hip Open reduction with IM nailing today 06/26/17 with NPO. Bedrest, non-ambulatory. Catheter in place. Pain control. Xarelto on hold - Lovenox started for DVT prophylaxis. Consent reviewed and discussed with the patient. Patient signed consent. Awaiting labs, but cardiac workup - including ECHO - performed on 06/15/17. Qualifiers: Encounter type: initial encounter Fracture type: closed Fracture alignment: displaced Qualified Code(s): S72.142A - Displaced intertrochanteric fracture of left femur, initial encounter for closed fracture (2) Coronary artery disease Current Visit: No Status: Chronic Qualifiers: Coronary Disease-Associated Artery/Lesion type: [place] artery [place] vs. transplanted heart: [place] heart Associated angina: angina presence unspecified Qualified Code(s): I25.10 - Atherosclerotic heart disease of [place] coronary artery without angina pectoris (3) Parkinson disease Current Visit: No Status: Chronic (4) Type 2 diabetes mellitus Current Visit: No Status: Acute Qualifiers: Diabetes mellitus complication status: without complication Diabetes mellitus retirement insulin use: without terminal gauger use Qualified Code(s): E11.9 - Type 2 diabetes mellitus without complications (5) Anticoagulant long-term use Current Visit: Yes Status: Acute (6) Diabetes mellitus Current Visit: No Status: Chronic Qualifiers: Diabetes mellitus type: type 2 Diabetes mellitus complication status: without complication Diabetes mellitus retirement insulin use: unspecified retirement insulin use status Qualified Code(s): E11.9 - Type 2 diabetes mellitus without complications History of Present Illness Chief complaint: Fall at [facility] HPI: Ms. Bennett is a 77 year old female, hx of recurrent falls, CAD s/p CABG 2004, HTN, DMII, parkinsonism who presents with acute fall with an acute left hip intertrochanteric fracture. Tonight, she stood up and when she attempted to sit down, her chair slide further beyond her leading to the fall. She mentions that the wood floors were too slippery. After the trauma, she had severe pain along her left leg, worse with movement, better with morphine IV and rest. Unable to ambulate secondary to pain and instability. She also has a history of Right hip pain, osteoarthritis, negative for fracture from 06/15 hospital stay. She has had a hx of recurrent mechanical falls and fracture where MCP requiring surgical pin placement approx 3 months ago, surgery uneventful. Most recent admission on 06/15 secondary to another fall. Cardiac workup completed at that time - she was discharged to [facility] in stable condition. She has seen been at a SNF for the last 2 week in an attempt to improve her physical conditioning. XR/XR hip complete LT IMPRESSION: Acute intertrochanteric left hip fracture. XR/XR hand 3V RT IMPRESSION: No acute fracture or malalignment. CT/CT cervical spine wo con IMPRESSION: Spondylosis with no definite fracture. CT/CT head/brain wo con IMPRESSION: No acute intracranial abnormality. Moderate chronic small vessel ischemic disease within the periventricular white matter with associated mild atrophy Bilateral basal ganglionic lacunes CT/CT orbit wo con IMPRESSION: No acute abnormality of the orbits. Past Med Surg Social Fam HX - Past Medical History Medical history: diabetes, GERD, hyperlipidemia, hypertension, myocardial infarction Psychiatric history: anxiety, bipolar, depression - Past Surgical History Surgical History: orthopedic, other - Social History Smoking Status: Never smoker Smokeless Tobacco Status: No Alcohol use: none Drug use: none - Family History Mother Living Status: Hx Family Cardiac Disorders: Yes Father Living Status: Hx Family Neurologic Disorders: Yes (Brain aneurysm) Medications and Allergies Aspirin Enteric Coated [Aspirin EC] 81 mg PO QAM 07/20/15 [History] Carbidopa/Levodopa 25/100 [Sinemet] 1 each PO TID 07/20/15 [History] Carbidopa/Levodopa ER 50/200 [Sinemet ER 50-200 Tab] 1 each PO HS 07/20/15 [ History] Carvedilol [Coreg] 12.5 mg PO BID 07/20/15 [History] Ezetimibe [Zetia] 10 mg PO DAILY 07/20/15 [History] Lisinopril [Zestril] 20 mg PO DAILY 07/20/15 [History] Omeprazole [PriLOSEC] 40 mg PO BID 07/20/15 [History] Pramipexole [Mirapex] 0.5 mg PO BID 07/20/15 [History] Amlodipine Besylate 2.5 mg PO DAILY 04/12/17 [History] Atorvastatin [Lipitor] 40 mg PO HS 04/12/17 [History] Duloxetine HCl [Cymbalta] 60 mg PO DAILY 04/12/17 [History] Gabapentin [Neurontin] 300 mg PO HS 04/12/17 [History] GlipiZIDE XL (24 HR) [Glucotrol XL] 2.5 mg PO 0800 04/12/17 [History] Metformin HCl [Glucophage] 1,000 mg PO BID 04/12/17 [History] Mirabegron [Myrbetriq] 50 mg PO DAILY 04/12/17 [History] Oxybutynin Chloride [Ditropan Xl] 5 mg PO HS 04/12/17 [History] Rivaroxaban [Xarelto] 20 mg PO HS 04/12/17 [History] Sertraline [Zoloft] 25 mg PO DAILY 04/12/17 [History] SitaGLIPtin [Januvia] 100 mg PO DAILY 04/12/17 [History] 3 Allergy/AdvReac Type Severity Reaction Status Date / Time Gatifloxacin [From Tequin] Allergy Hives Verified 06/14/17 12:29 All Systems Reviewed: A 10-system review of systems was performed and is negative for pertinent findings except as documented above in the HPI. - Constitutional Constitutional: as per HPI - Cardiovascular Cardiovascular: as per HPI, no chest pain, no dyspnea on exertion, no syncope - Respiratory Respiratory: as per HPI, no cough, no dyspnea, no dyspnea on exertion - Musculoskeletal Musculoskeletal: as per HPI, abnormal gait, joint swelling, limited range of motion, muscle weakness, stiffness, no numbness, no radiating pain into limb, no tingling Physical Exam - Constitutional Vitals: Temp Pulse Resp BP Pulse Ox 98.2 F 95 18 179/73 97 06/26/17 07:04 06/26/17 07:04 06/26/17 07:04 06/26/17 07:04 06/26/17 07:04 - Fracture left hip Location of fracture: Left Intertrochanteric fracture of femur Appearance: swelling, other Open wound: No Compartments: soft Distal extremity neurovascularly intact: Yes Proximal joint involvement: No Distal joint involvement: No Results - Labs Result Diagrams: 06/27/17 04:20 06/26/17 07:58 Labs: Abnormal lab results POC Glucose 168 (58-89) H 06/26/17 07:33 Awaiting repeat CBC, BMP, PT/PTT/ INR Chronic 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 - Diagnostic results Hip x-ray: report reviewed, image reviewed Hip AP/Lateral x-ray: report reviewed, image reviewed Consult Discharge Plan - Plan Referrals: Angy Camejo [Primary Care Provider] -
[2017-06-26 08:15] LABS: INR 1.8; Prothrombin Time 19.8 Seconds (9.4-12.1)
[2017-06-26 08:17] LABS: BUN/Creatinine Ratio 21 (6-26); Blood Urea Nitrogen 16 mg/dL (7-20); Calcium 9.3 mg/dL (8.6-10.8); Carbon Dioxide 25 mEq/L (19-29); Chloride 105 mEq/L (98-109); Glucose 177 mg/dL (70-99); Osmolality,Calculated 294 (280-300); Potassium 4.6 mEq/L (3.5-4.5); Sodium 139 mEq/L (136-145); eGFR For African Americans > 60 (> 60); eGFR For Non-African Americans > 60 (> 60)
[2017-06-26 08:23] LABS: Basophils % 0.4 %; Eosinophils # 0.1 K/mcL (0.0-0.6); Eosinophils % 1.3 %; Hematocrit 32.4 % (35.3-44.9); Hemoglobin 9.9 g/dL (11.5-15.4); Immature Granulocytes % 0.4 % (0-4); Lymphocytes # 1.1 K/mcL (0.6-4.6); Lymphocytes % 10.6 %; Mean Corpuscular HGB Conc 30.6 g/dL (31.6-35.5); Mean Corpuscular Hemoglobin 23.9 pg (28.0-33.3); Mean Corpuscular Volume 78.1 fL (83.0-100.0); Mean Platelet Volume 11.4 fL (9.4-12.4); Monocytes # 0.4 K/mcL (0.0-1.3); Monocytes % 4.3 %; Neutrophils # 8.6 K/mcL (1.6-8.9); Platelet Count 235 K/mcL (140-400); Red Blood Count 4.15 M/mcL (3.82-4.97)
[2017-06-26] MEDS ORDERED: (Mirabegron [Myrbetriq] 50 MG) PO SCH (09:00)
[2017-06-26] MEDS ORDERED: *HR* Enoxaparin 40 MG/0.4 ML SYRINGE SQ SCH (09:00)
[2017-06-26] MEDS ORDERED: (Ezetimibe [Zetia] 10 MG) PO SCH (09:00)
[2017-06-26] MEDS ORDERED: Aspirin Enteric Coated 81 MG Tablet PO SCH (09:00)
[2017-06-26] MEDS ORDERED: Carbidopa/Levodopa 25/100 TABLET PO SCH (09:00)
[2017-06-26] MEDS ORDERED: Lisinopril 20 MG TABLET PO SCH (09:00)
[2017-06-26] MEDS ORDERED: *HR* SitaGLIPtin 100 MG TABLET PO SCH (09:00)
[2017-06-26] MEDS ORDERED: amLODIPine 5 MG TABLET PO SCH (09:00)
[2017-06-26] MEDS ORDERED: Insulin LISPRO 300 UNITS/3 ML VIAL SQ SCH ×2 (12:00→18:00)
[2017-06-26] MEDS ORDERED: *HR* Propofol 200 MG/20 ML VIAL IVP ONE (12:45)
[2017-06-26] MEDS ORDERED: Dexamethasone 4 MG/ML VIAL ONE (12:45)
[2017-06-26] MEDS ORDERED: Ondansetron 4 MG/2 ML VIAL ONE (12:45)
[2017-06-26] MEDS ORDERED: *HR* FentaNYL (PF) 100 MCG/2 ML VIAL ONE (12:45)
[2017-06-26] MEDS ORDERED: Lidocaine -MPF 2% 2 ML VIAL ONE (12:45)
[2017-06-26] MEDS ORDERED: *HR* Succinylcholine 200 MG/10 ML VIAL IVP ONE (12:45)
--- NOTE | 2017-06-26 13:51 | Event Note ---
Date of Encounter: 06/26/17 Time of Encounter: 09:05 Patient is awake and alert. Does have severe pain in left leg that is controlled with narcotic medications. Has been evaluated by orthopedics. Plan for surgery with open reduction and intramedullary nailing later today. Patient had a 2-D echocardiogram done during last hospitalization which showed EF of 50-55% with mild diastolic dysfunction. She did have surgery on her right hand earlier this year without any issues. At this time she is cleared to undergo surgery from a medical standpoint. Xarelto is on hold due to impending surgery.
--- NOTE | 2017-06-26 13:58 | Anesthesia Evaluation PreOp ---
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) Other Medical History: Diabetes Type II Anesthesia History: No Prior Anesthetic Complications Alcohol Use: none Drug use: none Medications and Allergies Aspirin Enteric Coated [Aspirin EC] 81 mg PO QAM 07/20/15 [History] Carbidopa/Levodopa 25/100 [Sinemet] 1 each PO TID 07/20/15 [History] Carbidopa/Levodopa ER 50/200 [Sinemet ER 50-200 Tab] 1 each PO HS 07/20/15 [ History] Carvedilol [Coreg] 12.5 mg PO BID 07/20/15 [History] Ezetimibe [Zetia] 10 mg PO DAILY 07/20/15 [History] Lisinopril [Zestril] 20 mg PO DAILY 07/20/15 [History] Omeprazole [PriLOSEC] 40 mg PO BID 07/20/15 [History] Pramipexole [Mirapex] 0.5 mg PO BID 07/20/15 [History] Amlodipine Besylate 2.5 mg PO DAILY 04/12/17 [History] Atorvastatin [Lipitor] 40 mg PO HS 04/12/17 [History] Duloxetine HCl [Cymbalta] 60 mg PO DAILY 04/12/17 [History] Gabapentin [Neurontin] 300 mg PO HS 04/12/17 [History] GlipiZIDE XL (24 HR) [Glucotrol XL] 2.5 mg PO 0800 04/12/17 [History] Metformin HCl [Glucophage] 1,000 mg PO BID 04/12/17 [History] Mirabegron [Myrbetriq] 50 mg PO DAILY 04/12/17 [History] Oxybutynin Chloride [Ditropan Xl] 5 mg PO HS 04/12/17 [History] Rivaroxaban [Xarelto] 20 mg PO HS 04/12/17 [History] Sertraline [Zoloft] 25 mg PO DAILY 04/12/17 [History] SitaGLIPtin [Januvia] 100 mg PO DAILY 04/12/17 [History] 3 Allergy/AdvReac Type Severity Reaction Status Date / Time Gatifloxacin [From Tequin] Allergy Hives Verified 06/14/17 12:29 - Meds/Allergy Pre-op Review Medications Reviewed: Yes Allergies Reviewed: Yes Beta Blockers on Current Med List: Yes If Beta Blockers taken, Date/Time (Last Dose taken): 06-26-17 coreg 8:07 Anesthesia Results - Labs 06/26/17 07:58 06/26/17 07:58 - Imaging EKG: report reviewed, image reviewed Additional studies: TTE: Impressions: LVEF 50-55%. Atypical septal motion. There is evidence of mild diastolic dysfunction of the left ventricle. Normal right ventricular size and function. Mild tricuspid regurgitation. No pulmonary hypertension by TR gradient. Anesthesia Exam Last Vital Signs Temp 98.9 F 06/26/17 11:00 Pulse 95 06/26/17 11:00 Resp 18 06/26/17 11:00 BP 141/58 06/26/17 11:00 Pulse Ox 92 06/26/17 11:00 Weight: 75 kg NPO (# of Hours): >> 8 hrs - HEENT Pupil (Motor): Pupils equal, EOMI Mallampati: III Teeth: Missing, Poor dentition Oral Opening: Greater than 3 - [employer] LOC: Disoriented - Cardiac Rhythm: Regular Murmur: None - Pulmonary Breath Sounds: bilateral Clear Respiratory Effort: Symmetrical Anesthesia Assess/Plan ASA Score: 3 Modified Adelaide Scale for Level of Consciousness: Cooperative, oriented, and tranquil Anesthetic Plan: General Monitoring Plan: Standard Monitors Recovery Plan: PACU
[2017-06-26] MEDS ORDERED: *HR* Labetalol 20 MG/4 ML SYRINGE IVP PRN (14:12)
[2017-06-26] MEDS ORDERED: Dexamethasone 4 MG/ML VIAL IVP ONE (14:12)
[2017-06-26] MEDS ORDERED: Water for inj. (sterile) 20 ML IV ONE (14:19)
[2017-06-26] MEDS ORDERED: ceFAZolin 2,000 MG in D5% in Water 100 ML IVPB ONE (14:54)
--- NOTE | 2017-06-26 15:01 | Orthopedic Operative Note ---
Date of procedure: 06/26/17 Pre-op diagnosis: Left intertrochanteric hip fracture Post-op diagnosis: same Procedure: Procedure: Left hip open reduction intramedullary nail fixation Estimated blood loss: 50 cc Hardware: Metal: 10 x 130 degree Synthes TFN, 100 helical blade, 36 mm distal locking bolt Operative procedure: The patient was brought to the operating room and placed on the operating room table. After general anesthesia was administered the well leg was place in the well leg villa and the operative leg was placed in the fracture leg villa. All pressure points were padded appropriately. The operative extremity was prepped and draped in the sterile surgical fashion patient received IV antibiotic prior to skin incision. A standard direct lateral approach was made over the entry point of the greater trochanter, the incision was made through the skin and subcutaneous tissue hemostasis was obtained with Bovie cautery. Using careful sharp dissection the fascia was identified and incised, flouroscopic assistance was used to identify the entry point. The guidepin was placed at the entry point using fluroscopic assistance, it was over reamed with the proximal reamer. The 10 x 130 degree nail was placed through the entry hole, across the fracture site into the distal fragment. the position was confirmed with fluroscopy. A guide pin was placed through the proximal locking guide from the lateral femur through the nail across the fracture site into the femoral head, it was over reamed with the reamer. The 100 mm helical blade was placed over the guide pin through the nail into the femoral head, locked in place with the proximal locking bolt. 36 mm Distal locking bolt was placed through the distal locking guide position of hardware and fracture reduction found to be acceptable with fluroscopic assistance. The wound was irrigated. Fascia was closed with a running #2 PDS suture. The deep tissue was irrigated and closed deep with #1 PDS suture superficially with 0 PDS suture and skin was closed skin rogers and with Dermabond. The patient was placed in a sterile dressing The patient was extubated and transferred to the recovery room in stable condition. Anesthesia: GETA Surgeon: Benjy Sanders Condition: stable Disposition: PACU
[2017-06-26] MEDS ORDERED: ceFAZolin 2,000 MG in D5% in Water 100 ML IVPB SCH (16:01)
--- NOTE | 2017-06-26 16:12 | Anesthesia Evaluation Post Op ---
Date of Encounter: 06/26/17 Time of Encounter: 16:01 - Vital Signs Vital Signs: vss - Lungs Lungs: Clear Ascult./Percussion - Airway Airway: Non-obstructed - Cardiovascular Baseline Rhythm - Mental Status Mental Status: Alert & Oriented, Answers Appropriately - Pain Pain Scale used: Elayne (Faces) - Nausea Vomiting Nausea Vomiting: Not Present - Hydration Hydration: Ice chips - Discharge PostOp Status: Transfer Patient to floor
[2017-06-26 16:14] LABS: Hematocrit 28.6 % (35.3-44.9); Hemoglobin 8.7 g/dL (11.5-15.4)
[2017-06-26] MEDS: Insulin LISPRO 300 UNITS/3 ML VIAL SQ SCH ×2 (18:09→21:55)
[2017-06-26] MEDS: ceFAZolin 2,000 MG in D5% in Water 100 ML IVPB SCH (20:42)
[2017-06-26] MEDS: Gabapentin 300 MG CAPSULE PO SCH (20:43)
[2017-06-26] MEDS: Carbidopa/Levodopa ER 50/200 TABLET PO SCH (20:44)
[2017-06-26] MEDS: Carbidopa/Levodopa 25/100 TABLET PO SCH (20:59)
[2017-06-26] MEDS ORDERED: Gabapentin 300 MG CAPSULE PO SCH (21:00)
[2017-06-26] MEDS ORDERED: Carbidopa/Levodopa ER 50/200 TABLET PO SCH (21:00)
[2017-06-27] MEDS: ceFAZolin 2,000 MG in D5% in Water 100 ML IVPB SCH (04:46)
[2017-06-27 04:58] LABS: Basophils % 0.1 %; Hematocrit 24.8 % (35.3-44.9); Hemoglobin 7.7 g/dL (11.5-15.4); Immature Granulocytes % 0.2 % (0-4); Lymphocytes # 0.6 K/mcL (0.6-4.6); Lymphocytes % 7.7 %; Mean Corpuscular Volume 77.3 fL (83.0-100.0); Mean Platelet Volume 11.4 fL (9.4-12.4); Monocytes # 0.3 K/mcL (0.0-1.3); Monocytes % 3.5 %; Neutrophils # 7.3 K/mcL (1.6-8.9); Platelet Count 200 K/mcL (140-400); Red Blood Count 3.21 M/mcL (3.82-4.97); Segmented Neutrophils % 88.5 %
--- NOTE | 2017-06-27 06:55 | Orthopedics Progress Note ---
Date of Encounter: 06/27/17 Time of Encounter: 06:55 Subjective Interval history: Patient was seen this morning doing well without complaints. Afebrile vital signs stable. Operative extremity: Neurovascularly intact Dressing clean dry and intact Calves nontender Assessment and plan: Continue with postoperative care Hematocrit 24 transfuse 2 units. Objective Vital signs: Vital Signs Temp Pulse Resp BP Pulse Ox 06/27/17 05:28 97.5 F L 86 18 107/68 91 06/27/17 00:53 98.9 F 89 19 117/61 97 06/26/17 22:05 99.0 F 100 20 172/80 97 06/26/17 21:00 96 06/26/17 17:51 97.9 F 99 12 125/67 96 06/26/17 16:44 98.5 F 97 14 141/66 97 06/26/17 16:05 98.7 F 93 11 152/78 96 06/26/17 15:50 99.6 F 94 24 159/71 96 06/26/17 15:40 93 24 161/62 96 06/26/17 15:30 93 24 160/82 100 06/26/17 15:20 99.6 F 89 18 154/79 100 06/26/17 11:00 98.9 F 95 18 141/58 92 06/26/17 07:04 98.2 F 95 18 179/73 97 Intake and Output 06/26/17 06/26/17 06/27/17 15:59 23:59 07:59 Intake Total 100 / 100 150 / 150 400 / 400 Output Total 50 / 50 750 / 750 Balance 50 / 50 150 / 150 -350 / -350 Intake: IV Fluids 100 / 100 100 / 100 Ancef 2,000 MG In 100 / 100 100 / 100 Dextrose 5% 100 ML @ 200 mls/hr IVPB Q8H [facility] Rx#: [id number] Oral 0 / 0 50 / 50 400 / 400 Output: Estimated Blood Loss 50 / 50 Catheter 750 / 750 Other: Meal npo Percent of Meal Consumed 0% Blood Glucose* 176 237 - Labs CBC & BMP: 06/27/17 04:20 06/26/17 07:58 Labs: Abnormal lab results RBC 3.21 M/mcL (3.82-4.97) L 06/27/17 04:20 Hgb 7.7 g/dL (11.5-15.4) L 06/27/17 04:20 Hct 24.8 % (35.3-44.9) L 06/27/17 04:20 MCV 77.3 fL (83.0-100.0) L 06/27/17 04:20 MCH 24.0 pg (28.0-33.3) L 06/27/17 04:20 MCHC 31.0 g/dL (31.6-35.5) L 06/27/17 04:20 RDW 16.0 % (11.5-14.5) H 06/27/17 04:20 PT 19.8 Seconds (9.4-12.1) H 06/26/17 07:58 Potassium 4.6 mEq/L (3.5-4.5) H 06/26/17 07:58 Glucose 177 mg/dL (70-99) H 06/26/17 07:58 POC Glucose 237 (58-89) H 06/26/17 21:30 - VTE Documentation of Mechanical Device: Venous foot pump, device Consult Discharge Plan - Plan Referrals: Angy Camejo [Primary Care Provider] -
[2017-06-27] MEDS ORDERED: Furosemide 20 MG/2 ML VIAL IVP ONE (07:17)
[2017-06-27] MEDS ORDERED: Insulin LISPRO 300 UNITS/3 ML VIAL SQ SCH (07:30)
[2017-06-27] MEDS ORDERED: 0.9 % Sodium Chloride 250 ML IVC SCH (07:30)
[2017-06-27] MEDS: Aspirin Enteric Coated 81 MG Tablet PO SCH (08:23)
[2017-06-27] MEDS: *HR* SitaGLIPtin 100 MG TABLET PO SCH (08:23)
[2017-06-27] MEDS: Carbidopa/Levodopa 25/100 TABLET PO SCH ×3 (08:23→21:12)
[2017-06-27] MEDS: Insulin LISPRO 300 UNITS/3 ML VIAL SQ SCH ×4 (08:24→21:13)
[2017-06-27] MEDS: *HR* Enoxaparin 40 MG/0.4 ML SYRINGE SQ SCH (08:24)
[2017-06-27] MEDS: amLODIPine 5 MG TABLET PO SCH (08:25)
[2017-06-27] MEDS: (Ezetimibe [Zetia] 10 MG) PO SCH (08:25)
[2017-06-27] MEDS: (Mirabegron [Myrbetriq] 50 MG) PO SCH (08:25)
[2017-06-27] MEDS: Lisinopril 20 MG TABLET PO SCH (08:25)
--- NOTE | 2017-06-27 11:17 | Internal Med Progress Note ---
Date of Encounter: 06/27/17 Time of Encounter: 08:50 - Assessment and plan (1) Closed intertrochanteric fracture of left femur Current Visit: Yes Status: Acute Assessment and plan: Status post open reduction and intramedullary nail fixation. Pain is better controlled after procedure. Overall doing well. Physical therapy has been ordered for the patient. Continue supportive care. Patient will be placed back to skilled rehabilitation when cleared for discharge. Moderate risk for complications. Qualifiers: Encounter type: initial encounter Fracture alignment: displaced Qualified Code(s): S72.142A - Displaced intertrochanteric fracture of left femur , initial encounter for closed fracture (2) Anticoagulant long-term use Current Visit: Yes Status: Acute Assessment and plan: Patient takes Xarelto at home. Currently on Lovenox. Hemoglobin levels 7.7 today. We will continue Lovenox for today and then resume Xarelto tomorrow. (3) Coronary artery disease Current Visit: Yes Status: Chronic Assessment and plan: No chest pain. Continue home medications including aspirin, beta nicholas and statin. Qualifiers: Coronary Disease-Associated Artery/Lesion type: [place] artery [place] vs. transplanted heart: [place] heart Associated angina: angina presence unspecified Qualified Code(s): I25.10 - Atherosclerotic heart disease of [place] coronary artery without angina pectoris (4) Parkinson disease Current Visit: No Status: Chronic Assessment and plan: Continue Sinemet (5) Type 2 diabetes mellitus Current Visit: No Status: Chronic Assessment and plan: Sugars are elevated. Patient is receiving sliding scale insulin. We will add long-acting insulin. Qualifiers: Diabetes mellitus complication status: without complication Diabetes mellitus manager intermediate insulin use: without half-way use Qualified Code(s): E11.9 - Type 2 diabetes mellitus without complications (6) Anemia Current Visit: Yes Status: Acute Assessment and plan: Acute blood loss anemia related to surgery. Patient's baseline hemoglobin ranges between 9 and 10. Today at 7.7. We will transfuse packed red blood cells and monitor blood counts. Hold full anticoagulation until blood counts improve. Continue subcutaneous Lovenox for prophylaxis. Qualifiers: Anemia type: other cause Other causes of anemia: acute posthemorrhagic Qualified Code(s): D62 - Acute posthemorrhagic anemia - Subjective Interval history: Patient is doing better this morning. Pain has improved after her surgery. She denies any new complaints at this time. Eating breakfast and tolerating diet well. - Constitutional Vitals: Temp Pulse Resp BP Pulse Ox 98.7 F 88 18 102/55 93 06/27/17 07:29 06/27/17 07:29 06/27/17 07:29 06/27/17 07:29 06/27/17 07:29 General appearance: Present: cooperative, A&O X 3, answers questions appropriately - Neck Neck exam general surgery: Present: supple, trachea midline. Absent: lymphadenopathy - Respiratory Respiratory exam: Present: CTAB. Absent: accessory muscle use, rales, rhonchi, wheezes - Cardiovascular Cardiovascular exam: Present: RRR, +S1, +S2. Absent: diastolic murmur, gallop, rubs, systolic murmur - Extremities Exam Extremities exam: Present: tenderness (left hip tenderness), warm, radial pulses palpable and symmetrical. Absent: calf tenderness, cyanotic, pedal edema - Neurological Exam Neurological exam: Present: alert, oriented X3, no focal deficits. Absent: facial droop, speech deficit Internal Medicine: Result - Labs CBC & Chem 7: 06/27/17 04:20 06/26/17 07:58 Labs: Short CBC 06/26/17 06/27/17 Range/Units 15:52 04:20 WBC 8.2 (4.3-11.1) K/mcL Hgb 8.7 L 7.7 L (11.5-15.4) g/dL Hct 28.6 L 24.8 L (35.3-44.9) % Plt Count 200 (140-400) K/mcL Neutrophils # 7.3 (1.6-8.9) K/mcL - ABG Interpretation ABG results: PT/INR, D-dimer PT 19.8 Seconds (9.4-12.1) H 06/26/17 07:58 - VTE Documentation of Mechanical Device: Venous foot pump, device Consult Discharge Plan - Plan Referrals: Angy Camejo [Primary Care Provider] -
[2017-06-27] MEDS: *HR* OxyCODONE Immed Rel 5 MG TABLET PO PRN (18:48)
[2017-06-27] MEDS ORDERED: Insulin DETEMIR 100 UNIT/ML X5UNITS SQ SCH (21:00)
[2017-06-27] MEDS: Carbidopa/Levodopa ER 50/200 TABLET PO SCH (21:11)
[2017-06-27] MEDS: Gabapentin 300 MG CAPSULE PO SCH (21:12)
[2017-06-28] MEDS: *HR* OxyCODONE Immed Rel 5 MG TABLET PO PRN ×3 (01:39→15:39)
[2017-06-28 05:16] LABS: Basophils % 0.3 %; Eosinophils % 0.1 %; Hematocrit 28.1 % (35.3-44.9); Hemoglobin 9.2 g/dL (11.5-15.4); Immature Granulocytes % 0.4 % (0-4); Lymphocytes # 0.9 K/mcL (0.6-4.6); Lymphocytes % 12.1 %; Mean Corpuscular HGB Conc 32.7 g/dL (31.6-35.5); Mean Corpuscular Hemoglobin 26.2 pg (28.0-33.3); Mean Corpuscular Volume 80.1 fL (83.0-100.0); Mean Platelet Volume 11.3 fL (9.4-12.4); Monocytes # 0.4 K/mcL (0.0-1.3); Monocytes % 5.6 %; Neutrophils # 6.3 K/mcL (1.6-8.9); Platelet Count 178 K/mcL (140-400); Red Blood Count 3.51 M/mcL (3.82-4.97); Red Cell Distribution Width 16.5 % (11.5-14.5); Segmented Neutrophils % 81.5 %
[2017-06-28 05:31] LABS: BUN/Creatinine Ratio 16 (6-26); Blood Urea Nitrogen 11 mg/dL (7-20); Calcium 8.8 mg/dL (8.6-10.8); Carbon Dioxide 26 mEq/L (19-29); Chloride 102 mEq/L (98-109); Glucose 139 mg/dL (70-99); Osmolality,Calculated 284 (280-300); Potassium 3.7 mEq/L (3.5-4.5); Sodium 136 mEq/L (136-145); eGFR For African Americans > 60 (> 60); eGFR For Non-African Americans > 60 (> 60)
[2017-06-28] MEDS ORDERED: Acetaminophen 325 MG TABLET PO PRN (05:34)
--- NOTE | 2017-06-28 06:27 | Orthopedics Progress Note ---
Date of Encounter: 06/28/17 Time of Encounter: 06:27 Subjective Interval history: Patient was seen this morning doing well without complaints. Afebrile vital signs stable. Operative extremity: Neurovascularly intact Dressing clean dry and intact Calves nontender Assessment and plan: Continue with postoperative care Hematocrit 28 stable for discharge Objective Vital signs: Vital Signs Temp Pulse Resp BP Pulse Ox 06/28/17 04:34 98.6 F 85 123/82 91 06/27/17 23:21 98.0 F 98 16 105/63 92 06/27/17 19:33 98.2 F 84 15 128/57 95 06/27/17 17:42 98.5 F 90 16 119/60 98 06/27/17 16:08 99.9 F H 95 18 118/52 96 06/27/17 15:32 98.7 F 86 16 100/55 95 06/27/17 15:17 99.1 F 85 16 91/49 98 06/27/17 13:39 98.2 F 96 16 88/53 98 06/27/17 11:31 99.1 F 87 14 101/52 93 06/27/17 11:18 84 15 100/49 97 06/27/17 11:16 98.8 F 84 15 100/49 97 06/27/17 07:29 98.7 F 88 18 102/55 93 Intake and Output 06/27/17 06/27/17 06/28/17 15:59 23:59 07:59 Intake Total 420 / 420 475 / 475 Output Total 150 / 150 200 / 200 Balance 420 / 420 325 / 325 -200 / -200 Intake: Oral 120 / 120 175 / 175 Blood Product 300 / 300 300 / 300 Rbcs Leuko Poor As-1 300 / 300 Unit [id number] Rbcs Leuko Poor As-1 0 / 0 300 / 300 Unit [id number] Output: Urine 150 / 150 200 / 200 Other: Meal Lunch Percent of Meal Consumed 10% # Voids 1 Weight 76.7 kg Blood Glucose* 189 164 Patient Weight 06/28/17 23:59 Weight 76.7 kg - Labs CBC & BMP: 06/28/17 05:04 06/28/17 05:04 Labs: Abnormal lab results RBC 3.51 M/mcL (3.82-4.97) L 06/28/17 05:04 Hgb 9.2 g/dL (11.5-15.4) L D 06/28/17 05:04 Hct 28.1 % (35.3-44.9) L 06/28/17 05:04 MCV 80.1 fL (83.0-100.0) L 06/28/17 05:04 MCH 26.2 pg (28.0-33.3) L 06/28/17 05:04 RDW 16.5 % (11.5-14.5) H 06/28/17 05:04 PT 19.8 Seconds (9.4-12.1) H 06/26/17 07:58 Glucose 139 mg/dL (70-99) H 06/28/17 05:04 POC Glucose 175 (58-89) H 06/27/17 16:08 - VTE Documentation of Mechanical Device: Venous foot pump, device Consult Discharge Plan - Plan Referrals: Angy Camejo [Primary Care Provider] -
--- NOTE | 2017-06-28 07:16 | Orthopedics Progress Note ---
Date of Encounter: 06/28/17 Time of Encounter: 07:12 Subjective Interval history: S: Christie is close to 3 months out from percutaneous pin fixation of the right index metacarpal neck. She is recently admitted for a left hip fracture which was fixed by my partner Dr. Sanders and she is doing reasonably well from this. Before this fracture of the left hip she had been progressing well with therapy regarding the right hand. Her hand pain had nearly completely resolved and she has recovered a significant amount of motion back. She was pleased with the result. O: Evaluation of the right hand shows that the skin and the soft tissue envelope are intact without any swelling. No tenderness to palpation throughout. Wrist motion is from 50 degrees of extension to about 70 degrees of flexion with full pronation and supination. Index metacarpophalangeal joint and interphalangeal joints all have about 70-80 degrees of flexion. Nearly full motion of the other digits with mild or stiffness. The patient can actively flex and extend all digits, extend the thumb, cross the index and long fingers, make an okay sign, and oppose the thumb. The fingertips are all grossly sensate and well- perfused, and the radial artery pulse is 2+. A: Post CRPP of the right index metacarpal neck. Currently admitted after a left hip fracture fixed by my partner Dr. Sanders. P: Regarding the right hand, activities as tolerated and weightbearing as tolerated. Continued motion exercises with occupational hand therapy. Follow-up with me in the office in 4 weeks for clinical reevaluation or sooner if needed. When she is discharged she will call the office for any new or worsening concerns before then. Objective Vital signs: Vital Signs Temp Pulse Resp BP Pulse Ox 06/28/17 04:34 98.6 F 85 123/82 91 06/27/17 23:21 98.0 F 98 16 105/63 92 06/27/17 19:33 98.2 F 84 15 128/57 95 06/27/17 17:42 98.5 F 90 16 119/60 98 06/27/17 16:08 99.9 F H 95 18 118/52 96 06/27/17 15:32 98.7 F 86 16 100/55 95 06/27/17 15:17 99.1 F 85 16 91/49 98 06/27/17 13:39 98.2 F 96 16 88/53 98 06/27/17 11:31 99.1 F 87 14 101/52 93 06/27/17 11:18 84 15 100/49 97 06/27/17 11:16 98.8 F 84 15 100/49 97 06/27/17 07:29 98.7 F 88 18 102/55 93 Intake and Output 06/27/17 06/27/17 06/28/17 15:59 23:59 07:59 Intake Total 420 / 420 475 / 475 Output Total 150 / 150 200 / 200 Balance 420 / 420 325 / 325 -200 / -200 Intake: Oral 120 / 120 175 / 175 Blood Product 300 / 300 300 / 300 Rbcs Leuko Poor As-1 300 / 300 Unit [id number] Rbcs Leuko Poor As-1 0 / 0 300 / 300 Unit [id number] Output: Urine 150 / 150 200 / 200 Other: Meal Lunch Percent of Meal Consumed 10% # Voids 1 Weight 76.7 kg Blood Glucose* 189 164 Patient Weight 06/28/17 23:59 Weight 76.7 kg - Labs CBC & BMP: 06/28/17 05:04 06/28/17 05:04 Labs: Abnormal lab results RBC 3.51 M/mcL (3.82-4.97) L 06/28/17 05:04 Hgb 9.2 g/dL (11.5-15.4) L D 06/28/17 05:04 Hct 28.1 % (35.3-44.9) L 06/28/17 05:04 MCV 80.1 fL (83.0-100.0) L 06/28/17 05:04 MCH 26.2 pg (28.0-33.3) L 06/28/17 05:04 RDW 16.5 % (11.5-14.5) H 06/28/17 05:04 PT 19.8 Seconds (9.4-12.1) H 06/26/17 07:58 Glucose 139 mg/dL (70-99) H 06/28/17 05:04 POC Glucose 164 (58-89) H 06/27/17 20:12 - VTE Documentation of Mechanical Device: Venous foot pump, device Consult Discharge Plan - Plan Referrals: Angy Camejo [Primary Care Provider] -
[2017-06-28] MEDS: *HR* SitaGLIPtin 100 MG TABLET PO SCH (07:45)
[2017-06-28] MEDS: Lisinopril 20 MG TABLET PO SCH (07:45)
[2017-06-28] MEDS: Aspirin Enteric Coated 81 MG Tablet PO SCH (07:45)
[2017-06-28] MEDS: amLODIPine 5 MG TABLET PO SCH (07:46)
[2017-06-28] MEDS: *HR* Enoxaparin 40 MG/0.4 ML SYRINGE SQ SCH (07:46)
[2017-06-28] MEDS: Carbidopa/Levodopa 25/100 TABLET PO SCH ×2 (07:46→15:39)
[2017-06-28] MEDS: Insulin LISPRO 300 UNITS/3 ML VIAL SQ SCH ×2 (07:47→11:38)
[2017-06-28] MEDS: (Ezetimibe [Zetia] 10 MG) PO SCH (07:47)
[2017-06-28] MEDS: (Mirabegron [Myrbetriq] 50 MG) PO SCH (07:47)
--- NOTE | 2017-06-28 11:22 | Discharge Summary ---
Date of Encounter: 06/28/17 Time of Encounter: 11:23 - Discharge Diagnosis (1) Closed intertrochanteric fracture of left femur Priority: Primary Status: Acute Qualifiers: Encounter type: initial encounter Fracture alignment: displaced Qualified Code(s): S72.142A - Displaced intertrochanteric fracture of left femur , initial encounter for closed fracture (2) Anticoagulant long-term use Priority: Secondary Status: Acute (3) Coronary artery disease Priority: Secondary Status: Chronic Qualifiers: Coronary Disease-Associated Artery/Lesion type: [place] artery [place] vs. transplanted heart: [place] heart Associated angina: angina presence unspecified Qualified Code(s): I25.10 - Atherosclerotic heart disease of [place] coronary artery without angina pectoris (4) Parkinson disease Priority: Secondary Status: Chronic (5) Type 2 diabetes mellitus Priority: Secondary Status: Chronic Qualifiers: Diabetes mellitus complication status: without complication Diabetes mellitus fpc insulin use: without fpc use Qualified Code(s): E11.9 - Type 2 diabetes mellitus without complications (6) Anemia Priority: Secondary Status: Acute Qualifiers: Anemia type: other cause Other causes of anemia: acute posthemorrhagic Qualified Code(s): D62 - Acute posthemorrhagic anemia - Discharge Medications Prescriptions: OxyCODONE Immed Rel [Roxicodone 5 MG] 5 mg PO Q6HR PRN #14 tab PRN Reason: Moderate Pain (4-6) Docusate [Colace] 100 mg PO BID PRN #30 capsule PRN Reason: Constipation Home Medications: Aspirin Enteric Coated [Aspirin EC] 81 mg PO QAM 07/20/15 [History] Carbidopa/Levodopa 25/100 [Sinemet] 1 each PO TID 07/20/15 [History] Carbidopa/Levodopa ER 50/200 [Sinemet ER 50-200 Tab] 1 each PO HS 07/20/15 [ History] Carvedilol [Coreg] 12.5 mg PO BID 07/20/15 [History] Ezetimibe [Zetia] 10 mg PO DAILY 07/20/15 [History] Lisinopril [Zestril] 20 mg PO DAILY 07/20/15 [History] Omeprazole [PriLOSEC] 40 mg PO BID 07/20/15 [History] Pramipexole [Mirapex] 0.5 mg PO BID 07/20/15 [History] Amlodipine Besylate 2.5 mg PO DAILY 04/12/17 [History] Atorvastatin [Lipitor] 40 mg PO HS 04/12/17 [History] Duloxetine HCl [Cymbalta] 60 mg PO DAILY 04/12/17 [History] Gabapentin [Neurontin] 300 mg PO HS 04/12/17 [History] GlipiZIDE XL (24 HR) [Glucotrol XL] 2.5 mg PO 0800 04/12/17 [History] Metformin HCl [Glucophage] 1,000 mg PO BID 04/12/17 [History] Mirabegron [Myrbetriq] 50 mg PO DAILY 04/12/17 [History] Oxybutynin Chloride [Ditropan Xl] 5 mg PO HS 04/12/17 [History] Rivaroxaban [Xarelto] 20 mg PO HS 04/12/17 [History] Sertraline [Zoloft] 25 mg PO DAILY 04/12/17 [History] SitaGLIPtin [Januvia] 100 mg PO DAILY 04/12/17 [History] Docusate [Colace] 100 mg PO BID PRN #30 capsule 06/28/17 [Rx] OxyCODONE Immed Rel [Roxicodone 5 MG] 5 mg PO Q6HR PRN #14 tab 06/28/17 [Rx] Allergies/Adverse Reactions: 3 Allergy/AdvReac Type Severity Reaction Status Date / Time Gatifloxacin [From Tequin] Allergy Hives Verified 06/14/17 12:29 Date of admission: 06/26/17 05:50 Primary care physician: Angy Camejo Consults: 06/26/17 06:23 Consult to Orthopedic Surgery [CONS] Stat Consulting Provider: [facility] Reason for Consult: left hip fx Call Completed: Yes 06/26/17 16:01 Consult to Occupational Therapy [CONS] Routine Comment: Evaluate, develop and implement POC Reason for Consult: post hip surgery Consult to Orthopedic Navigator [CONS] [CONS] Routine Consult to Physical Therapy [CONS] Routine Comment: Evaluate, develop and implement POC Reason for Consult: post hip surgery Consult to Video Editor [CONS] Routine Reason for SW Consult: post -op hip fracture RT Post Op Consult [CONS] Routine Discharging clinician: Brad Cross Anticipated date of discharge: 08/25/17 - Patient Status Disposition: Transfer SNF Condition: Fair Functional capacity at discharge: uses cane/walker Overall status at discharge: patient is progressing back to baseline - Discharge Instructions Follow Up With: Angy Camejo [Primary Care Provider] - (in 1-2 weeks) Benjy Sanders MD [Partnered Physician] - (in 2 weeks) - Diet and Activity Activity: as per physical therapy Diet: diabetic diet, low fat, low cholesterol, low salt diet Hospital course: Ms. Bennett is a 77 year old female patient with history of type 2 diabetes mellitus, Parkinson's disease, venous thromboembolic disorder, coronary artery disease was hospitalized here after fall at the [facility] resulting in left femur intertrochanteric fracture. She was evaluated by orthopedics and recommended surgery for it. Patient underwent left hip open reduction and intramedullary nail fixation on 06/26/17. She did develop anemia post procedure and required 2 units of packed red blood cell transfusion. Since then she has been recovering well. She is now stable for discharge from an orthopedic standpoint and will follow up with orthopedics in clinic in couple of weeks for further management. She will be discharged to skilled rehabilitation physical therapy. She can resume taking her Xarelto for anticoagulation. - Time Spent with Patient Total time spent providing and/or coordinating discharge services: Greater than 30 minutes (40 min) - Constitutional Vitals: Temp Pulse Resp BP Pulse Ox 97.7 F 78 18 95/52 95 06/28/17 10:19 06/28/17 10:19 06/28/17 10:19 06/28/17 10:19 06/28/17 10:19 General appearance: Present: cooperative, A&O X 3, answers questions appropriately - Neck Neck exam general surgery: Present: supple, trachea midline. Absent: lymphadenopathy - Respiratory Respiratory exam: Present: CTAB. Absent: accessory muscle use, rales, rhonchi, wheezes - Cardiovascular Cardiovascular exam: Present: RRR, +S1, +S2. Absent: diastolic murmur, gallop, rubs, systolic murmur - GI/Abdominal GI/Abdominal exam: Present: normal bowel sounds, soft, no peritoneal signs. Absent: distended, tenderness - Extremities Exam Extremities exam: Present: tenderness (left hip), warm, radial pulses palpable and symmetrical. Absent: calf tenderness, cyanotic, pedal edema - VTE Documentation of Mechanical Device: Venous foot pump, device
--- NOTE | 2017-06-28 11:49 | Physician Discharge Referral ---
ExtendedCare Referral Info Provider in Charge after Transfer: PCP Institutional Level of Care: Skilled - Diagnosis (1) Closed intertrochanteric fracture of left femur Priority: Primary Status: Acute (2) Anticoagulant long-term use Priority: Secondary Status: Acute (3) Coronary artery disease Priority: Secondary Status: Chronic (4) Parkinson disease Priority: Secondary Status: Chronic (5) Type 2 diabetes mellitus Priority: Secondary Status: Chronic (6) Anemia Priority: Secondary Status: Acute Prognosis: Fair Aware of Diagnosis: Patient, Family Aware of Prognosis: Patient, Family - Transfer Medications Prescriptions: OxyCODONE Immed Rel [Roxicodone 5 MG] 5 mg PO Q6HR PRN #14 tab PRN Reason: Moderate Pain (4-6) Docusate [Colace] 100 mg PO BID PRN #30 capsule PRN Reason: Constipation Home Medications: Aspirin Enteric Coated [Aspirin EC] 81 mg PO QAM 07/20/15 [History] Carbidopa/Levodopa 25/100 [Sinemet] 1 each PO TID 07/20/15 [History] Carbidopa/Levodopa ER 50/200 [Sinemet ER 50-200 Tab] 1 each PO HS 07/20/15 [ History] Carvedilol [Coreg] 12.5 mg PO BID 07/20/15 [History] Ezetimibe [Zetia] 10 mg PO DAILY 07/20/15 [History] Lisinopril [Zestril] 20 mg PO DAILY 07/20/15 [History] Omeprazole [PriLOSEC] 40 mg PO BID 07/20/15 [History] Pramipexole [Mirapex] 0.5 mg PO BID 07/20/15 [History] Amlodipine Besylate 2.5 mg PO DAILY 04/12/17 [History] Atorvastatin [Lipitor] 40 mg PO HS 04/12/17 [History] Duloxetine HCl [Cymbalta] 60 mg PO DAILY 04/12/17 [History] Gabapentin [Neurontin] 300 mg PO HS 04/12/17 [History] GlipiZIDE XL (24 HR) [Glucotrol XL] 2.5 mg PO 0800 04/12/17 [History] Metformin HCl [Glucophage] 1,000 mg PO BID 04/12/17 [History] Mirabegron [Myrbetriq] 50 mg PO DAILY 04/12/17 [History] Oxybutynin Chloride [Ditropan Xl] 5 mg PO HS 04/12/17 [History] Rivaroxaban [Xarelto] 20 mg PO HS 04/12/17 [History] Sertraline [Zoloft] 25 mg PO DAILY 04/12/17 [History] SitaGLIPtin [Januvia] 100 mg PO DAILY 04/12/17 [History] Docusate [Colace] 100 mg PO BID PRN #30 capsule 06/28/17 [Rx] OxyCODONE Immed Rel [Roxicodone 5 MG] 5 mg PO Q6HR PRN #14 tab 06/28/17 [Rx] Allergies/Adverse Reactions: 3 Allergy/AdvReac Type Severity Reaction Status Date / Time Gatifloxacin [From Tequin] Allergy Hives Verified 06/14/17 12:29 - Respiratory Orders Smoking Cessation: Smoking cessation has been advised. For more information, call the [employer] Quit Line at [phone]. - Ancillary Orders May consult with Dentist, Snubber, Allocations Clerk PRN - Advance Directives Code Status: Full Code - Mobility Orders Ambulate (per PT) - Rehabiliation Orders Rehab Potential: Fair Rehab Orders: Evaluation for Physical Therapy, Evaluation for Occupational Therapy - Diet Orders No Concentrated Sweets (diabetic), Cardiac CERTIFICATION: I certify that the transfer of the above named patient to an Extended Care Facility is necessary for the continuing treatment of the diagnosis listed. The above information is true and accurate reflection of patient's current condition. Confidential - Redisclosure prohibited without a patient's written consent.
[2017-06-28 14:00] VITALS: BP 108/71
== END 2017-06-28 16:50 | DRG 481 ==
LOC: EMEROO 03:51 → 3NENU 05:50
PROVIDERS: ADMIT Internal Medicine Hematology & Oncology; ATTEND Internal Medicine

== ENCOUNTER 2019-08-31 11:42 | Inpatient (IN) ==
[2019-08-31] MEDS ORDERED: Acetaminophen 325 MG TABLET PO ONE (12:00)
[2019-08-31 12:35] LABS: Basophils % 0.6 %; Eosinophils # 0.2 K/mcL (0.0-0.6); Eosinophils % 2.8 %; Hematocrit 34.7 % (35.3-44.9); Hemoglobin 11.6 g/dL (11.5-15.4); Immature Granulocytes % 0.3 % (0-4); Lymphocytes # 1.1 K/mcL (0.6-4.6); Lymphocytes % 15.7 %; Mean Corpuscular HGB Conc 33.4 g/dL (31.6-35.5); Mean Corpuscular Hemoglobin 30.9 pg (28.0-33.3); Mean Corpuscular Volume 92.5 fL (83.0-100.0); Monocytes # 0.4 K/mcL (0.0-1.3); Monocytes % 5.3 %; Neutrophils # 5.1 K/mcL (1.6-8.9); Platelet Count 198 K/mcL (140-400); Red Blood Count 3.75 M/mcL (3.82-4.97); Red Cell Distribution Width 14.3 % (11.5-14.5); Segmented Neutrophils % 75.3 %; White Blood Count 6.8 K/mcL (4.3-11.1)
[2019-08-31 12:39] LABS: INR 1.9; Prothrombin Time 22.1 Seconds (9.4-12.1)
[2019-08-31 12:41] LABS: Activated Partial Thrombo Time 41.6 Seconds (26.0-36.0)
[2019-08-31 12:51] LABS: BUN/Creatinine Ratio 35 (6-26); Blood Urea Nitrogen 26 mg/dL (8-23); Calcium 9.3 mg/dL (8.6-10.3); Carbon Dioxide 27 mEq/L (23-29); Chloride 105 mEq/L (98-107); Glucose 222 mg/dL (70-105); Osmolality,Calculated 302 (280-300); Potassium 4.2 mEq/L (3.5-5.1); Sodium 140 mEq/L (136-145); eGFR For African Americans > 60 (> 60); eGFR For Non-African Americans > 60 (> 60)
[2019-08-31] MEDS ORDERED: Ketorolac 15 MG/ML VIAL IVP ONE (14:13)
[2019-08-31] MEDS ORDERED: Ondansetron 4 MG/2 ML VIAL IVP PRN (16:08)
[2019-08-31] MEDS ORDERED: Ketorolac 15 MG/ML VIAL IVP PRN (16:08)
[2019-08-31] MEDS ORDERED: Naloxone 0.4 MG/ML INJ IVP PRN ×2 (16:08→17:49)
[2019-08-31] MEDS ORDERED: Acetaminophen 325 MG TABLET PO PRN (16:08)
[2019-08-31] MEDS ORDERED: Bisacodyl 10 MG RECTAL SUPPOSITORY RC PRN (16:11)
[2019-08-31] MEDS ORDERED: Lactulose Oral Soln 20 GM/30 ML UDC PO PRN (16:11)
[2019-08-31] MEDS ORDERED: Dextrose Gel 15 GM/37.5 ML TUBE PO PRN ×2 (16:12)
[2019-08-31] MEDS ORDERED: *HR* Dextrose 50 % in Water (Syg) 50 ML SYRINGE IVP PRN (16:12)
[2019-08-31] MEDS ORDERED: D5% in Water 1,000 ML IVC PRN (16:12)
[2019-08-31] MEDS: Insulin LISPRO 300 UNITS/3 ML VIAL SQ SCH ×2 (21:35→21:47)
[2019-08-31] MEDS: Carbidopa/Levodopa 25/100 TABLET PO SCH (21:42)
[2019-08-31] MEDS: Gabapentin 300 MG CAPSULE PO SCH (21:43)
[2019-09-01 01:53] LABS: BUN/Creatinine Ratio 33 (6-26); Blood Urea Nitrogen 29 mg/dL (8-23); Calcium 9.1 mg/dL (8.6-10.3); Carbon Dioxide 26 mEq/L (23-29); Chloride 107 mEq/L (98-107); Glucose 168 mg/dL (70-105); Osmolality,Calculated 302 (280-300); Potassium 3.8 mEq/L (3.5-5.1); Sodium 141 mEq/L (136-145); eGFR For African Americans > 60 (> 60); eGFR For Non-African Americans > 60 (> 60)
[2019-09-01] MEDS: Carbidopa/Levodopa 25/100 TABLET PO SCH ×3 (07:57→20:48)
[2019-09-01] MEDS: Lisinopril 20 MG TABLET PO SCH (07:57)
[2019-09-01] MEDS: Aspirin Enteric Coated 81 MG Tablet PO SCH (07:59)
[2019-09-01] MEDS: amLODIPine 5 MG TABLET PO SCH (07:59)
[2019-09-01] MEDS: Insulin LISPRO 300 UNITS/3 ML VIAL SQ SCH ×4 (08:03→20:49)
[2019-09-01] MEDS ORDERED: NON-FORMULARY MEDICATION 1 EACH EACH (Ezetimibe [Zetia] 10 MG) PO SCH (09:00)
[2019-09-01 17:31] LABS: Adenovirus F 40/41 PCR Not detected (Not detect); Astrovirus PCR Not detected (Not detect); C.difficile Toxin A/B Gene PCR Not detected (Not detect); Campylobacter by PCR Not detected (Not detect); Cryptosporidium by PCR Not detected (Not detect); Cyclospora cayetanensis PCR Not detected (Not detect); E. coli O157 by PCR Not detected (Not detect); Entamoeba histolytica PCR Not detected (Not detect); Enteroaggregative E.coli(EAEC) Not detected (Not detect); Enteropathogenic E.coli(EPEC) Not detected (Not detect); Enterotoxigenic E.coli (ETEC) Not detected (Not detect); Giardia lamblia PCR Not detected (Not detect); Norovirus GI/GII PCR Not detected (Not detect); Plesiomonas shigelloides PCR Not detected (Not detect); Rotavirus A PCR Not detected (Not detect); Salmonella PCR Not detected (Not detect); Sapovirus PCR Not detected (Not detect); Shig/EnteroinvasiveE coli EIEC Not detected (Not detect); Shigalike tox-prod E coli STEC Not detected (Not detect); Vibrio PCR Not detected (Not detect); Vibrio cholerae PCR Not detected (Not detect); Yersinia enterocolitica PCR Not detected (Not detect)
[2019-09-01] MEDS: *HR* Rivaroxaban 15 MG TABLET PO SCH (18:08)
[2019-09-01] MEDS: Gabapentin 300 MG CAPSULE PO SCH (20:48)
[2019-09-02] MEDS ORDERED: *HR* HYDROcodone/Acet 5/325 mg TABLET PO PRN (05:43)
[2019-09-02] MEDS: amLODIPine 5 MG TABLET PO SCH (07:42)
[2019-09-02] MEDS: Cholecalciferol (D-3) 1,000 UNIT (25MCG) TABLET PO SCH (07:42)
[2019-09-02] MEDS: Lisinopril 20 MG TABLET PO SCH (07:42)
[2019-09-02] MEDS: Furosemide 20 MG TABLET PO SCH (07:43)
[2019-09-02] MEDS: Aspirin Enteric Coated 81 MG Tablet PO SCH (07:44)
[2019-09-02] MEDS: Carbidopa/Levodopa 25/100 TABLET PO SCH ×5 (07:44→17:54)
[2019-09-02] MEDS: hydroCHLOROthiazide 25 MG TABLET PO SCH (07:44)
[2019-09-02] MEDS: Insulin LISPRO 300 UNITS/3 ML VIAL SQ SCH ×4 (07:46→20:50)
[2019-09-02] MEDS: *HR* HYDROcodone/Acet 5/325 mg TABLET PO SCH ×2 (07:47→20:50)
[2019-09-02] MEDS: Insulin DETEMIR 100 UNIT/ML X5UNITS SQ SCH (08:56)
[2019-09-02] MEDS ORDERED: *HR* Rivaroxaban 15 MG TABLET PO SCH (09:00)
[2019-09-02] MEDS ORDERED: INSULIN DETEMIR 26 UNIT SQ SCH (09:00)
[2019-09-02] MEDS ORDERED: Aspirin Enteric Coated 81 MG Tablet PO SCH (09:00)
[2019-09-02] MEDS: *HR* Rivaroxaban 15 MG TABLET PO SCH (17:53)
[2019-09-02] MEDS: Gabapentin 300 MG CAPSULE PO SCH (20:49)
[2019-09-03 04:44] LABS: Hematocrit 36.3 % (35.3-44.9); Hemoglobin 11.9 g/dL (11.5-15.4); Mean Corpuscular HGB Conc 32.8 g/dL (31.6-35.5); Mean Corpuscular Hemoglobin 31.2 pg (28.0-33.3); Mean Platelet Volume 10.9 fL (9.4-12.4); Platelet Count 191 K/mcL (140-400); Red Blood Count 3.82 M/mcL (3.82-4.97); Red Cell Distribution Width 14.1 % (11.5-14.5); White Blood Count 5.8 K/mcL (4.3-11.1)
[2019-09-03 05:08] LABS: BUN/Creatinine Ratio 39 (6-26); Blood Urea Nitrogen 36 mg/dL (8-23); Calcium 9.4 mg/dL (8.6-10.3); Carbon Dioxide 26 mEq/L (23-29); Chloride 103 mEq/L (98-107); Glucose 223 mg/dL (70-105); Osmolality,Calculated 305 (280-300); Potassium 3.9 mEq/L (3.5-5.1); Sodium 140 mEq/L (136-145); eGFR For African Americans > 60 (> 60); eGFR For Non-African Americans 59 (> 60)
[2019-09-03] MEDS: Furosemide 20 MG TABLET PO SCH (10:15)
[2019-09-03] MEDS: amLODIPine 5 MG TABLET PO SCH (10:15)
[2019-09-03] MEDS: Cholecalciferol (D-3) 1,000 UNIT (25MCG) TABLET PO SCH (10:15)
[2019-09-03] MEDS: hydroCHLOROthiazide 25 MG TABLET PO SCH (10:16)
[2019-09-03] MEDS: Carbidopa/Levodopa 25/100 TABLET PO SCH ×3 (10:16→17:42)
[2019-09-03] MEDS: Lisinopril 20 MG TABLET PO SCH (10:16)
[2019-09-03] MEDS: Insulin LISPRO 300 UNITS/3 ML VIAL SQ SCH ×7 (10:17→20:14)
[2019-09-03] MEDS: Aspirin Enteric Coated 81 MG Tablet PO SCH (10:17)
[2019-09-03] MEDS: *HR* HYDROcodone/Acet 5/325 mg TABLET PO SCH ×2 (10:21→20:13)
[2019-09-03] MEDS: Insulin DETEMIR 100 UNIT/ML X5UNITS SQ SCH (10:21)
[2019-09-03] MEDS: *HR* Rivaroxaban 15 MG TABLET PO SCH (17:42)
[2019-09-03] MEDS: Gabapentin 300 MG CAPSULE PO SCH (20:13)
[2019-09-04 06:57] VITALS: BP 123/59
[2019-09-04] MEDS: Aspirin Enteric Coated 81 MG Tablet PO SCH (08:38)
[2019-09-04] MEDS: Cholecalciferol (D-3) 1,000 UNIT (25MCG) TABLET PO SCH (08:38)
[2019-09-04] MEDS: Furosemide 20 MG TABLET PO SCH (08:39)
[2019-09-04] MEDS: Carbidopa/Levodopa 25/100 TABLET PO SCH (08:39)
[2019-09-04] MEDS: amLODIPine 5 MG TABLET PO SCH (08:39)
[2019-09-04] MEDS: Lisinopril 20 MG TABLET PO SCH (08:39)
[2019-09-04] MEDS: hydroCHLOROthiazide 25 MG TABLET PO SCH (08:39)
[2019-09-04] MEDS: Insulin LISPRO 300 UNITS/3 ML VIAL SQ SCH ×2 (08:40)
[2019-09-04] MEDS: Insulin DETEMIR 100 UNIT/ML X5UNITS SQ SCH (08:47)
== END 2019-09-04 11:37 | DRG 554 ==
LOC: EMEROOARM 11:42 → 3BNU 11:42 → SUATTDRO 18:16 → 3BNU 18:52
PROVIDERS: ADMIT Student in an Organized Health Care Education/Training Program; ATTEND Internal Medicine